=== PATIENT | female | born 1975 | race Caucasian/White ===

== ENCOUNTER 2025-05-03 16:55 | Inpatient (IN) | payer SELFPAY ==
[2025-05-03 17:01] VITALS: BP 107/77; PULSE 102; RESP 18; TEMP 36.7; O2SAT 97; BMI 35.1
--- OUTSIDE RECORDS SUMMARY | 2025-05-03 17:01 | XMS_ITS | Encounter Summary ---
Author Organization [facility] Address [address] [place] [address] Care Team Providers Care Carbon Accountant Name Role Phone Anne Escobar MD Unavailable [phone] Magdaleno Blackwell MD Primary Care Provider [phone] Reason for Visit * Reason Onset Date Comments Botox Injection 04/04/2025 Encounter Details Date Type Department Care Team ([facility] Contact Info) Description 04/04/2025 Telephone Neurology [place] [address] [phone] [place] [address] [place] [phone] Botox Injection Social History Tobacco Use Types Packs/Day Years Used Date Smoking Tobacco: Every Day Cigarettes 1.5 32 Smokeless Tobacco: Never Comments:started at age 14, trying to quit down to 2 packs a week Alcohol Use Standard Drinks/Week Comments Not Currently 0 (1 standard drink = 0.6 oz pur e alcohol) PHQ-2 Answer Date Recorded PHQ-2 Score 0 08/26/2021 Comments No Sex and Gender Information Value Date Recorded Sex Assigned at Not on file Legal Sex Female 5:21 AM EST Gender Identity Not on file Sexual Orientation Not on file documented as of this encounter Miscellaneous Notes * Telephone Encounter - Tona Briseno - 04/06/2025 8:37 AM EDT Tried calling patient to offer 04/07 at 8:[address] Patton, her mobile voicemail is full and her home # does not have voicemail set up yet * Telephone Encounter - Jhonathan Patton MD - 04/05/2025 5:22 PM EDT Please offer 08:45 on 04/07. Thanks * Telephone Encounter - Yamini Hayes - 04/05/2025 11:17 AM EDT Patient called to check if Dr. Patton responded about getting her in for Botox before 04/12 Please advise, thank you * Telephone Encounter - Gilma Randolph - 04/04/2025 10:55 AM EDT Her Botox is here if we have room next week * Telephone Encounter - Tona Briseno - 04/04/2025 10:48 AM EDT Henrietta was calling to schedule botox. She is asking that it be done on or before the 11 of April because she is going out of town, and she said that Dr. Patton knows that and told her that she couldprobably get in before the 11 of April. documented in this encounter Plan of Treatment Upcoming Encounters Date Type Department Care Team (Late st Contact Info) Description 07/04/2025 2:45 PM EDT Procedure visit Neurology [place] [address] [phone] Jhonathan Patton MD [address] [phone] documented as of this encounter Visit Diagnoses Not on filedocumented in this encounter Care Teams Carbon Accountant Relationship Specialty Start Date End Date Anne Escobar MD [address] [place] [phone] PCP - OBGYN Obstetrics and Gynecology 07/02/21 Magdaleno Blackwell MD [address] [place] [phone] PCP - General Emergency Medicine 08/04/22 documented as of this encounter
--- OUTSIDE RECORDS SUMMARY | 2025-05-03 17:01 | XMS_ITS | Encounter Summary ---
Author Organization [facility] Address [address] [place] [address] Care Team Providers Care Reel Stripper Name Role Phone Anne Escobar MD Unavailable [phone] Magdaleno Blackwell MD Primary Care Provider [phone] Encounter Details Date Type Department Care Team (Late Contact Info) Description 05/05/2023 Documentation Only [facility] Neurology [facility] [address] [place] [phone] DoctorDiana MD Social History Tobacco Use Types Packs/Day Years [...] on file documented as of this encounter Plan of Treatment Upcoming Encounters Date Type Department Care Team (Late Contact Info) Description 07/04/2025 2:45 PM EDT Procedure visit Neurology [place] [address] [phone] Jhonathan Patton MD 2655 [facility] [address] [place] [address] documented as of this encounter Visit Diagnoses Not on filedocumented in this encounter Additional Health Concerns Infection Onset Date Last Indicated Resolved Time Influenza 11/07/2024 11/07/2024 03/10/2025 8:55 AM EDT documented as of this encounter Care Teams Reel Stripper Relationship Specialty Start Date End Date Anne Escobar MD [address] [place] [phone] PCP - OBGYN Obstetrics and Gynecology 07/02/21 Magdaleno Blackwell MD [address] [place] [phone] PCP - General Emergency Medicine 08/04/22 documented as of this encounter
--- OUTSIDE RECORDS SUMMARY | 2025-05-03 17:01 | XMS_ITS | Encounter Summary ---
Author Organization [facility] Address [address] [place] [address] Care Team Providers Care Manager Of Financial Reporting Name Role Phone Anne Escobar MD Unavailable [phone] Magdaleno Blackwell MD Primary Care Provider [phone] Reason for Visit * Reason Onset Date Comments Appointment 03/27/2025 Encounter Details Date Type Department Care Team ([facility] Contact Info) Description 03/27/2025 Telephone Neurology [place] [address] [place] [phone] [place] [address] [place] [phone] Appointment Social History Tobacco Use Types Packs/Day Years [...] * Telephone Encounter - Tona Briseno - 03/27/2025 9:37 AM EDT Henrietta called to schedule appointment with Dr. Chappell, she is scheduled for IVIG on the and , and needs appointment at 4. She said that Dr. Chappell will want to see her after the IVIG. Pleaseadvise when to schedule documented in this encounter Plan of Treatment Upcoming Encounters Date Type Department Care Team (Late st Contact Info) Description 07/04/2025 2:45 PM EDT Procedure visit Neurology [place] 2[address] [facility] [address] [place] [address] Jhonathan Patton MD 2655 [facility] [address] [place] [phone] documented as of this encounter Visit Diagnoses Not on filedocumented in this encounter Care Teams Manager Of Financial Reporting Relationship Specialty Start Date End Date Anne Escobar MD [address] [place] [phone] PCP - OBGYN Obstetrics and Gynecology 07/02/21 Magdaleno Blackwell MD [address] [place] [phone] PCP - General Emergency Medicine 08/04/22 documented as of this encounter
--- OUTSIDE RECORDS SUMMARY | 2025-05-03 17:01 | XMS_ITS | Encounter Summary ---
Author Organization [facility] Address [address] [place] [address] Care Team Providers Care Billboard Mechanic Name Role Phone Magdaleno Blackwell MD Primary Care Provider [phone] Encounter Details Date Type Department [facility] Description 08/23/2019 Ophth Exam [facility] [address] [facility], Floor [address] [place] [address] Joselito Mcginnis MD [address] [place] [address] [address] [place] [address] Social History Tobacco Use Types Packs/Day Years Used Date Smoking Tobacco: Every Day Cigarettes 1 26 Smokeless Tobacco: Never Alcohol Use Standard Drinks/Week Comments Yes 0 (1 standard drink = 0.6 oz pur e alcohol) 4 drinks /week Comments No Sex and Gender Information Value Date Recorded Sex Assigned at Female 03/07/2020 4:17 AM EDT Legal Sex Female 8:48 PM EST Gender Identity Not on file Sexual Orientation Not on file documented as of this encounter Functional Status * Is the person deaf or does he/she have serious difficulty hearing? Answer Date of Assessment Author No 08/19/2019 10:00 PM EDT Sharmaine Mehta RN * Is this person blind or does he/she have serious difficulty seeing even when wearing glasses? Answer Date of Assessment Author No 08/19/2019 10:00 PM Sharmaine Ledbetter RN * Does this person have serious difficulty walking or climbing stairs? Answer Date of Assessment Author No 08/19/2019 10:00 PM Sharmaine Ledbetter RN * Does this person have difficulty dressing or bathing? Answer Date of Assessment Author No 08/19/2019 10:00 PM EDT Sharmaine Mehta RN * Difficulty doing errands due to a physicial, mental or emotional condition Answer Date of Assessment Author No 08/19/2019 10:00 PM EDT Sharmaine Mehta RN documented as of this encounter Mental Status * Difficulty remembering or making decisions due to a physicial, mental or emotional condition Answer Entry Date Author No 08/19/2019 10:00 PM EDT Sharmaine Mehta RN documented in this encounter Plan of Treatment Not on file documented as of this encounter Visit Diagnoses Not on filedocumented in this encounter Additional Health Concerns Infection Onset Date Last Indicated Resolved Time R/O COVID-19 04/13/2020 04/13/2020 04/14/2020 2:24 PM EDT R/O Influenza 11/24/2023 11/24/2023 11/24/2023 9:3 6 PM EST documented as of this encounter Care Teams Billboard Mechanic Relationship Specialty Start Date End Date Magdaleno Blackwell MD [address] [place] [address] PCP - General Emergency Medicine 12/13/24 documented as of this encounter
--- OUTSIDE RECORDS SUMMARY | 2025-05-03 17:01 | XMS_ITS ---
Author Organization [facility] Address [address] [place] [phone] Phone [phone] Care Team Providers Care Classified Ad Clerk Name Role Phone Rita Saldivar LEONA Care Team Information Rece iver [phone] Dee Fuller MD Care Team Information Re ceiver [phone] Magdaleno Blackwell M.D. Care Team Information Cause Analyst [phone] Problems Active Problems Provider Date Tenderness of left lower quadrant of abdomen Madhuri Escobar M.D. Onset: 02/08/2021 Backache Thania Escobar M.D. Onset: Microscopic hematuria Thania Escobar M.D. Onse t: 02/08/2021 Kidney stone Thania Escobar M.D. Onset: Cigarette smoker MARIANA James Onset: 0 06/27/2022 Long-term current use of opi ate analgesic drug MARIANA James Onset: 06/27/2022 Cocaine user MARIANA James Onset: Gastroesophageal reflux disease MARIANA Dominguez Onset: 06/27/2022 Nodule of lung MARIANA James Onset: Essential hypertension MARIANA James On set: 06/27/2022 History of Graves' disease Maria Antonia James Onset: 06/27/2022 Anxiety MARIANA James Onset: Depressive disorder MARIANA James Onset : 06/27/2022 Cyst of kidney MARIANA James Onset: Allergies and adverse reactions Active Allergies Criticality Reaction Severity Comments Date Bactrim Unable to assess criticality 02/08/2021 Shellfish-Derived Products Unable to assess criticality 02/08/2021 Medications Active Medications SIG Qnty Indications Order ing Provider Date Oxybutynin Kztgnwue2rf Tablets 1 tab by mouth 3 times per day as needed for urinary pain 12tabs Thania Escobar M.D. 09/02/2021 [id number] Tablets 1 by mouth twice a day for 3 days 6tabs Thania Escobar M.D. 09/02/2021 Flomax0.4mg Capsules 1 by mouth nightly for 7 days 7caps Thania Escobar M.D. 09/02/2021 Oxybutynin Oupzmytm4mb Tablets take 1 tablet three times a day as needed for urinary pain/stent pain/bladder spasms 9tabs Thania Escobar M.D. 03/27/2021 Phenazopyridine [id number] Tablets take 1 tablet three times daily as needed for urinary pain/discomfort 15tabs Thania Escobar M.D. 03/27/2021 Losartan Potassium Unknown 0 Levothyroxine Sodium Unknown Mestinon Unknown Adderall Unknown Oxycodone HCL Unknown Vitamin B-12 Unknown /0 000 Vitamin D Unknown Ativan Unknown Referrals Description No Information Available Plan of Treatment No Information Available Assessments Date Code Description Provider 03/31/2025 N23 Unspecified renal colic Kenji Escobar M.D. 03/31/2025 N20.0 Calculus of kidney Thania Escobar M.D. Encounters Description No Information Available Social History Description No Information Available Functional Status Description No Information Available Mental Status Description No Information Available
--- OUTSIDE RECORDS SUMMARY | 2025-05-03 17:01 | XMS_ITS | Encounter Summary ---
Author Organization [facility] Address [address] [place] [address] Care Team Providers Care Buildings And Grounds Coordinator Name Role Phone Anne Escobar MD Unavailable [phone] Magdaleno Blackwell MD Primary Care Provider [phone] Encounter Details Date Type Department Care Team (Late Contact Info) Description 11/18/2024 Orders Only [facility] 2[address] [facility] [address] [place] [address] Romy Umaña RN Social History Tobacco Use Types Packs/Day Years Used Date Smoking Tobacco: Former Cigarettes 1.5 32 Smokeless Tobacco: Never Comments:started [...] 07/04/2025 2:45 PM EDT Procedure visit Neurology [place] 2655 [facility] [address] [place] [address] Jhonathan Patton MD 2655 [facility] [address] [place] [address] documented as of this encounter Visit Diagnoses Not on filedocumented in this encounter Additional Health Concerns Infection Onset Date Last Indicated Resolved Time Influenza 11/07/2024 11/07/2024 03/10/2025 8:55 AM EDT documented as of this encounter Care Teams Buildings And Grounds Coordinator Relationship Specialty Start Date End Date Anne Escobar MD [address] [place] [phone] PCP - OBGYN Obstetrics and Gynecology 07/02/21 Magdaleno Blackwell MD [address] [place] [phone] PCP - General Emergency Medicine 08/04/22 documented as of this encounter
--- OUTSIDE RECORDS SUMMARY | 2025-05-03 17:01 | XMS_ITS | Clinical Summary ---
Author Organization [facility] Address [address] [place] [address] Care Team Providers Care Nick Setter Name Role Phone Magdaleno Blackwell MD Primary Care Provider [phone] Source Comments If you require more information, please call our [facility] Department at [phone]. [facility] Allergies Active Allergy Reactions Criticality Noted Date Comments Adhesive Tape Hives 11/24/2023 Bactrim 10/16/2009 Diphenhydramine Other (See Comments) Low 11/24/2023 IV injection only-phlebitis Benzoin Rash Low 05/30/2021 Lisinopril Cough,Other (See Comments) Medium 09/18/2016 cough Morphine Rash,Nausea Only Low 05/22/2016 GI Shellfish-Derived Products Itching Low 08/18/2019 Medications CHANTIX STARTING MONTH BRADEN 0.5 MG X 11 & 1 MG X 42 tablet braden 08/25/20 19 Active acetaminophen (TYLENOL) 500 mg tablet Take 2 tablets (1,000 mg total) by mouth 3 times daily as needed for Pain 90 tablet 03/06/20 20 Active albuterol HFA (PROVENTIL, VENTOLIN, PROAIR HFA) 108 (90 Base) MCG/ACT inhaler Inhale 1-2 puffs into the lungs every 6 hours as needed for Wheezing. Shake well before each use. Active amphetamine-dext roamphetamine (ADDERALL) 30 MG tablet Take 1 tablet (30 mg total) by mouth every morning Max daily dose: 30 mg 30 tablet 03/15/20 20 Active LORazepam (ATIVAN) 1 MG tablet Take 1 tablet (1 mg total) by mouth nightly Max daily dose: 1 mg 30 tablet 03/15/20 20 Active Non-System MedicationIndica tions:Myasthenia gravis Ok to give IVIG one week early due to patient surgery 1 each 07/29/20 22 Active venlafaxine (EFFEXOR-XR) 75 mg 24 hr capsule Take 1 capsule (75 mg total) by mouth daily. 12/18/19 23 Active levothyroxine (SYNTHROID, LEVOTHROID) 50 mcg tablet Take 1 tablet (50 mcg total) by mouth daily. Active Non-System MedicationIndica tions:MG (myasthenia gravis) Ok to use mediport for IVIG infusion. 1 each 07/24/20 23 Active ibuprofen (ADVIL,MOTRIN) 600 mg tablet Take 1 tablet (600 mg total) by mouth 3 times daily. 08/20/20 23 Active pyridostigmine (MESTINON) 180 MG CR tablet TAKE 1 TABLET(180 MG) BY MOUTH DAILY 30 tablet 5 12/25/19 24 Active EPINEPHrine (EPIPEN) 0.3 mg/0.3 mL auto-injectorInd ications:Anaphyl axis for Life-Threatening Hypersensitivity Reaction. Inject 0.3mg(0.3ml) intramuscularly into the anterolateral aspect of the thigh, through clothing if necessary as needed for anaphylaxis. 1 each 5 08/16/20 24 Active pregabalin (LYRICA) 75 mg capsule Take 1 capsule (75 mg total) by mouth 3 times daily. 11/03/19 25 Active home ambulatory and bath aidsIndications: Spinal stenosis of lumbar region without neurogenic claudication listed below: 12/12/19 25 Active home ambulatory and bath aidsIndications: Spinal stenosis of lumbar region without neurogenic claudication listed below: 12/12/19 25 Active apixaban (ELIQUIS) 5 mg tablet Take 1 tablet (5 mg total) by mouth every 12 hours. 60 tablet 5 12:01 PM EST 12/13/19 25 Active naloxone (NARCAN) 4 mg/0.1 mL nasal spray Instill 1 spray in 1 nostril once for opioid reversal. Repeat in alternating nostrils with new package every 2-3 minutes until response 2 each 5 12:01 PM EST 12/13/19 25 Active methylPREDNISolo ne (MEDROL BRADEN) 4 MG tablet pack follow package directions 21 tablet 12/23/19 25 Active diphenhydrAMINE Take 1 tablet by mouth as needed (sleep). Active cyclobenzaprine (FLEXERIL) 5 mg tablet Take 1 tablet (5 mg total) by mouth nightly as needed for Muscle spasms. 28 tablet 1 01/17/20 25 Active oxyCODONE (ROXICODONE) 5 mg immediate release tabletIndication s:Acute Pain for Acute Pain. Take 1 tab po every 8 h as needed for pain; continue to wean down 21 tablet 01/25/20 25 Active semaglutide 0.25 mg or 0.5 mg dose (OZEMPIC, 0.25 OR 0.5 MG/DOSE,) pen Inject 0.5 mg into the skin once a week. Active baclofen 10 mg tablet TAKE 1 TABLET BY MOUTH TWICE DAILY NEEDED FOR BACK OR SPASMS Active cephalexin (KEFTAB) 500 MG tablet Take by mouth. 09/02/20 21 Active losartan 50 mg tablet Take 1 tablet (50 mg total) by mouth daily. Active metroNIDAZOLE (METROGEL-VAGINA L) 0.75 % vaginal gel INSERT 1 APPLICATORFUL VAGINALLY AT BEDTIME FOR 5 DAYS Active naproxen (NAPROSYN) 500 mg tablet Take 1 tablet (500 mg total) by mouth 2 times daily as needed. Active BOTOX 100 units SOLR SMARTSI Unit(s) IM Every 3 Months Active oxybutynin 5 mg tablet TAKE 1 TABLET BY MOUTH THREE TIMES DAILY NEEDED FOR URINARY PAIN 03/27/20 21 Active phenazopyridine 100 MG tablet TAKE 1 TABLET BY MOUTH THREE TIMES DAILY NEEDED FOR URINARY PAIN/DISCOMFORT 03/27/20 21 Active tamsulosin (FLOMAX) 0.4 mg capsule TAKE 1 CAPSULE BY MOUTH EVERY NIGHT FOR 7 DAYS 09/02/20 21 Active traMADol (ULTRAM) 50 mg tablet Active Active Problems Problem Noted Date Diagnosed Date Lumbar stenosis with [place] due to L2-L3 disc hernation 12/06/2024 Overview (12/07/2024): Images from the original note were not included. MRI lumbar spine 12/07/2024 Spinal stenosis of lumbar re gion with neurogenic claudication 11/07/2024 Visual disturbance 10/31/2024 Overview (10/31/2024): Visual disturbance described as positive visual phenomenon in left eye but persisting with eye closure lasting 3+ hours. Visual phenomenon has a migrainous quality with hexagonal pattern and rainbow colors but duration exceeds migraine duration. There is no homonymous hemianopia on formal visual field testing to suggest a structural etiology. Assessment & Plan (10/31/2024 8:23 PM EST): Visual disturbance described as positive visual phenomenon in left eye but persisting with eye closure lasting 3+ hours. Visual phenomenon has a migrainous quality with hexagonal pattern and rainbow colors but duration exceeds migraine duration. There is no homonymous hemianopia on formal visual field testing to suggest a structural etiology. Renal cyst 01/21/2023 Intramural leiomyoma of uterus 08/04/2022 Dysmenorrhea 08/04/2022 Cigarette smoker 06/27/2022 Hypertropia of right eye 06/09/2022 Overview (01/27/2025): 2. 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 She is s/p left inferior rectus muscle recession 8 mm on 08/28/22 with significant improvement. There is interval worsening of her residual right hypertropia on exam today. If remains stable on follow-up, will offer additional strabismus surgery. There is no evidence of compressive optic neuropathy based on her pupillary exam, color vision and visual acuity. Assessment & Plan (01/27/2025 6:15 PM EDT): 2. 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 She is s/p left inferior rectus muscle recession 8 mm on 08/28/22 with significant improvement. There is interval worsening of her residual right hypertropia on exam today. If remains stable on follow-up, will offer additional strabismus surgery. There is no evidence of compressive optic neuropathy based on her pupillary exam, color vision and visual acuity. Assessment & Plan (10/31/2024 8:27 PM EST): 3. 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 She is s/p left inferior rectus muscle recession 8 mm on 08/28/22 with significant improvement. If her residual right hypertropia worsens will offer additional strabismus surgery. There is no evidence of compressive optic neuropathy. Assessment & Plan (07/20/2024 7:33 PM EDT): 2. 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 She is s/p left inferior rectus muscle recession 8 mm on 08/28/22 with significant improvement. There is 1 mm increased left exophthalmos. There is no evidence of compressive optic neuropathy. Plan follow- up in Neuro-ophthalmology clinic in 6 months. Assessment & Plan (01/28/2024 5:59 AM EDT): 2. 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 She is s/p left inferior rectus muscle recession 8 mm on 08/28/22 with significant improvement. There has been interval improvement since last visit. Observe for now. Patient reports her diplopia is markedly improved since surgery. Her bilateral exophthalmos is stable. There is no evidence of compressive optic neuropathy. Plan follow-up in Neuro-ophthalmology clinic in 6 months. Assessment & Plan (06/09/2022 11:21 PM EDT): 2. 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 Recommend left inferior rectus muscle recession. The risks and benefits of strabismus surgery were discussed with patient and informed consent was obtained. Plan follow-up in Neuro-ophthalmology clinic 1 week post-operatively. Seronegative, nonthymomatous generalized Myasthe graciela gravis 11/19/2021 Intervertebral disc disorder with radiculopathy of lumbosacral region 07/04/2021 Long-term current use of opiate analgesic 2020 Dizzy spells 12/16/2020 Cervical dystonia 11/02/2020 Mild dilation of ascending aorta 10/30/2020 Generalized pruritus 10/03/2020 Recurrent falls 09/10/2020 Refractive error 05/29/2020 Overview (03/05/2022): 2. Refractive error. Patient was unable to tolerate line bifocals. She was given an updated MRx for progressive add lenses at last visit. She reports she cannot read with the glasses (add was made as +1.25 instead of +1.75 as prescribed)- will mail copy to patient so that she can request remake of her glasses. Assessment & Plan (03/05/2022 9:57 PM EDT): 2. Refractive error. Patient was unable to tolerate line bifocals. She was given an updated MRx for progressive add lenses at last visit. She reports she cannot read with the glasses (add was made as +1.25 instead of +1.75 as prescribed)- will mail copy to patient so that she can request remake of her glasses. Assessment & Plan (01/13/2022 8:11 PM EDT): 2. Refractive error. Patient was unable to tolerate line bifocals. She was given an updated MRx for progressive add lenses. She was also advised she could try a clip on add for reading. Assessment & Plan (05/14/2021 9:06 PM EDT): 2. Refractive error. Patient given a copy of her prior MRx for progressive add lenses as her new glasses are single vision lenses. Assessment & Plan (05/29/2020 11:27 AM EDT): 2. Refractive error. MRx updated for progressive add lenses as per patient request. 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 Patient reported symptoms of generalization. 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 There was interval improvement of her ptosis after starting IVIG on 02/04/22. She is s/p left inferior rectus recession 8 mm on 08/28/22 with initial desired ocular alignment in primary gaze. 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 She developed mild recurrent right hypertropia in primary gaze with interval worsening on exam today. She also has a new exotropia in primary gaze suggestive of myasthenia gravis. She is currently treated with IVIG Q 3 weeks. Plan follow-up in Neuro-ophthalmology in 3 months for re-assessment. Patient would like to have additional strabismus surgery if her ocular misalignment remains stable despite IVIG therapy. Assessment & Plan (01/27/2025 6:14 PM EDT): 1. 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 Patient reported symptoms of generalization. 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 There was interval improvement of her ptosis after starting IVIG on 02/04/22. She is s/p left inferior rectus recession 8 mm on 08/28/22 with initial desired ocular alignment in primary gaze. 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 She developed mild recurrent right hypertropia in primary gaze with interval worsening on exam today. She also has a new exotropia in primary gaze suggestive of myasthenia gravis. She is currently treated with IVIG Q 3 weeks. Plan follow-up in Neuro-ophthalmology in 3 months for re-assessment. Patient would like to have additional strabismus surgery if her ocular misalignment remains stable despite IVIG therapy. Assessment & Plan (10/31/2024 8:25 PM EST): 2. 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 Patient reported symptoms of generalization. 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 There was interval improvement of her ptosis after starting IVIG on 02/04/22. She is s/p left inferior rectus recession 8 mm on 08/28/22 with desired ocular alignment in primary gaze. 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 She developed mild recurrent right hypertropia in primary gaze but this is too small for additional strabismus surgery currently. Exam stable today. She deferred trial of Fresnel prism 3 PD BU OS (non-dominant eye) due to cost. Plan follow-up in Neuro-ophthalmology as scheduled in January. Assessment & Plan (07/20/2024 7:29 PM EDT): 1. 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 Patient reported symptoms of generalization. 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 There was interval improvement of her ptosis after starting IVIG on 02/04/22. She is s/p left inferior rectus recession 8 mm on 08/28/22 with desired ocular alignment in primary gaze. 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 She developed mild recurrent right hypertropia in primary gaze but this is too small for additional strabismus surgery. Exam stable today. She elected to trial Fresnel prism 3 PD BU OS (non-dominant eye) to determine if she would like prism ground into her glasses. She has no ocular misalignment on down gaze or left gaze, so ground in prism would induce diplopia in these directions. She will be updating her glasses soon with Optometry. Plan follow-up in Neuro-ophthalmology in 6 months. Assessment & Plan (01/28/2024 5:56 AM EDT): 1. 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 Patient reports symptoms of generalization. 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 There was interval improvement of her ptosis since starting IVIG on 02/04/22. She is also taking Mestinon as needed. There has been significant variability of her ocular misalignment across exams although her left hypotropia persisted. She is s/p left inferior rectus recession 8 mm on 08/28/22 with desired ocular alignment in primary gaze. 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 She has a mild recurrent right hypertropia in primary gaze but this is too small for additional strabismus surgery. Her ocular misalignment in right gaze is improving. Plan follow-up in Neuro-ophthalmology in 6 months. If any progression, could consider additional strabismus surgery. Patient would also like to have a referral to Oculoplastics for ptosis repair. Assessment & Plan (07/18/2023 10:28 AM EDT): 1. 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 Patient reports symptoms of generalization. She has had variable ocular misalignment across exams. 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 There was marked interval improvement of her ptosis since starting IVIG on 02/04/22. She is also taking Mestinon. There has been significant variability of her ocular misalignment across exams although her left hypotropia persisted. She is now s/p left inferior rectus recession 8 mm on 08/28/22 with desired ocular alignment in primary gaze. 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 She has a mild recurrent right hypertropia in primary gaze but this is too small for additional strabismus surgery. Plan follow-up in Neuro-ophthalmology in 6 months. If any progression, could consider additional strabismus surgery. Patient would also like to have a referral to Oculoplastics at that time if her ptosis remains stable. She is not using additional Mestinon 60 mg tablets (only 180 mg ER Mestinon Qam) most days due to side effects. Assessment & Plan (09/24/2022 1:50 PM EST): 1. 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 Patient reports symptoms of generalization. She has had variable ocular misalignment across exams. 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 There was marked interval improvement of her ptosis since starting IVIG on 02/04/22. She is also taking Mestinon. There has been significant variability of her ocular misalignment across exams although her left hypotropia persisted. 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 She is now s/p left inferior rectus recession 8 mm on 08/28/22 with desired ocular alignment in primary gaze. Plan follow-up in Neuro-ophthalmology in February 2023 (6 months post-operatively). Assessment & Plan (09/03/2022 1:49 PM EST): 1. 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 Patient reports symptoms of generalization. She has had variable ocular misalignment across exams. 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 There was marked interval improvement of her ptosis since starting IVIG on 02/04/22. She is also taking Mestinon. There has been significant variability of her ocular misalignment across exams although her left hypotropia persisted. 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 She is now s/p left inferior rectus recession 8 mm on 08/28/22. There is mild left lower lid edema and left lower lid retraction which is likely causing the perception of increased exophthalmos. By [place], her exophthalmos has not increased. Recommend continue Maxitrol ointment 1/4 OS QID for 1 more week. Plan follow-up in Neuro-ophthalmology clinic in 3 weeks as patient leaves for [place] 09/27/22 for over 1 month. Assessment & Plan (06/09/2022 11:19 PM EDT): 1. 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 Patient reports symptoms of generalization. She has had variable ocular misalignment across exams. 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 There is significant variability of her ocular misalignment across exams although her left hypotropia persists. There has been marked interval improvement of her ptosis since starting IVIG on 02/04/22. She is also taking Mestinon. Assessment & Plan (03/05/2022 9:56 PM EDT): 1. 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 Patient reports symptoms of generalization including dysphagia, dyspnea and fatigue. She has had variable ocular misalignment across exams. 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 There is significant variability of her ocular misalignment across exams although her left hypotropia persists. There has been marked interval improvement of her ptosis since starting IVIG on 02/04/22. She reports her diplopia nearly resolved after IVIG but has recently worsened. I discussed she may ultimately need strabismus surgery for her left hypotropia but will plan to re-evaluation first 1 week after IVIG. Patient will call once she knows infusion schedule in April. Assessment & Plan (01/13/2022 8:15 PM EDT): 1. 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 Patient reports symptoms of generalization including dysphagia, dyspnea and fatigue. She has had variable ocular misalignment across exams. 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 There is significant variability of her ocular misalignment today (worsening left hypotropia on down gaze versus up gaze). She will be starting IVIG in January. Would defer consideration of left inferior rectus muscle recession at this time pending response to IVIG. Plan follow-up in Neuro-ophthalmology clinic in 2 months. Assessment & Plan (09/16/2021 9:54 PM EST): 1. 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 There was no evidence of generalization on Neuromuscular clinic exam but patient reports dysphagia in the evening in addition to dyspnea with exertion. Re-evaluation by Neuromuscular clinic is pending on 09/25/21. Patient has had variable ocular misalignment across exams. She is only able to tolerate Mestinon 60 mg daily and defers consideration of low dose prednisone as she previously had adverse side effects on low dose prednisone. Hopefully steroid sparing immunosuppression can be considered at her upcoming Neuromuscular clinic appointment. 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 Will await results of Neuromuscular clinic evaluation/ therapeutic options. If no improvement, plan orbital imaging with consideration of left inferior rectus muscle recession. Plan follow-up in Neuro-ophthalmology clinic in 3 months. Assessment & Plan (05/14/2021 9:05 PM EDT): 1. 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 There was no evidence of generalization on Neuromuscular clinic exam. Patient has variable ocular misalignment when last seen in 2019 and right-sided myogenic ptosis. Exam today shows an incomitant right hypertropia. She defers consideration of low dose prednisone as she previously had adverse side effects on low dose prednisone. She is unable to tolerate Mestinon. Will refer to neuromuscular specialist for consideration of steroid- sparing immunosuppression. Plan follow-up in Neuro-ophthalmology clinic in 4 months. Assessment & Plan (05/29/2020 11:26 AM EDT): 1. 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 There was no evidence of generalization on Neuromuscular clinic exam. Patient has variable ocular misalignment on exam today and right-sided myogenic ptosis. She defers consideration of low dose prednisone as she previously had adverse side effects on low dose prednisone. Plan increase Mestinon to 60 mg Q4 hours PRN with glycopyrrolate 0.5 mg TID AC PRN for gastrointestinal side effects. Plan follow-up in Neuro-ophthalmology clinic in 3 months. 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 Headache 08/16/2019 Hypothyroidism 03/09/2019 Vitamin D deficiency 03/09/2019 Overweight 03/09/2019 Lumbago-sciatica due to disp lacement of lumbar intervertebral disc 03/09/2019 Hypertriglyceridemia 03/09/2019 Eczema 03/09/2019 Other spondylosis, lumbar region 10/26/2018 Pyelonephritis 05/29/2018 Polysubstance abuse 05/22/2016 Overview (09/02/2019): Overview: MJ, cocaine Lung nodule 05/22/2016 Overview (09/02/2019): Overview: CT chest 05/22/16 - 2 cm lingular nodule Left renal stone 05/08/2013 Backache 05/08/2013 History of nephrolithiasis 05/08/2013 B12 deficiency 05/08/2013 H/O Graves' disease 05/08/2013 Narcolepsy 05/08/2013 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 10/23/2010 Overview (01/19/2012): Created by Conversion Essential hypertension 12/19/2009 Overview (09/02/2019): Created by Conversion Anterior Wall Chest Pain With Respiration 2009 Overview (01/19/2012): Created by Conversion Insomnia 12/19/2009 Overview (01/19/2012): Created by Conversion Alopecia 09/04/2009 Overview (01/19/2012): Created by Conversion Rosacea 09/04/2009 Overview (01/19/2012): Created by Conversion Depressive disorder 03/08/2009 Overview (02/22/2016): Needs PHQ at next visit PHQ9 02/21/2016 PHQ-9 Total Score 17 Tobacco abuse 03/08/2009 Overview (09/02/2019): Created by Conversion Anxiety 03/08/2009 Overview (01/19/2012): Created by Conversion Prediabetes Dyslipidemia Resolved Problems Problem Noted Date Diagnosed Date Resolved Date Menorrhagia with regular cycle 08/04/2022 07/15/2023 Hematuria, unspecified type 03/06/2020 07/15/2023 Lung nodules 09/03/2019 07/15/2023 Bilateral back pain 09/02/2019 07/15/20 Chronic leg pain 09/02/2019 07/15/2023 Chest pain 05/22/2016 07/15/2023 Patellofemoral Syndrome 02/06/201006/20 Overview (01/19/2012): Created by Conversion Vitamin B12 Deficiency 03/08/200912/06 Overview (01/19/2012): Created by Conversion Encounters Date Type Department Care Team Description 04/05/2025 11:21 AM EDT - 04/05/2025 11:39 AM EDT Surgery [facility] Procedure [address] [place] [address] Ty Hogan MD LEFT L3 SNRB - BLOCK, SPINAL NERVE ROOT, LUMBOSACRAL 04/05/2025 11:11 AM EDT - 04/05/2025 11:59 PM EDT Hospital Encounter [facility] [address] [place] [address] Ty Hogan MD Low back pain Discharge Disposition: Home or Self Care 04/05/2025 11:10 AM EDT Hospital Encounter [facility] Procedure [address] [place] [address] Ty Hogan MD Discharge Disposition: Home or Self Care 03/24/2025 11:37 AM EDT - 03/24/2025 11:52 AM EDT Surgery [facility] Procedure [address] [place] [address] Ty Hogan MD LEFT L3 TFESI-INJECTION, SPINE, LUMBOSACRAL, TRANSFORAMINAL APPROACH -REQUESTING AFTER 10 AM 03/24/2025 11:17 AM EDT - 03/24/2025 11:59 PM EDT Hospital Encounter [facility] [address] [place] [place] [address] Ty Hogan MD Low back pain Discharge Disposition: Home or Self Care 03/24/2025 11:16 AM EDT Hospital Encounter [facility] Procedure [address] [place] [address] Ty Hogan MD Lumbar stenosis with neurogenic claudication (Primary Dx); Spondylolisthesis of lumbar region Discharge Disposition: Home or Self Care 03/16/2025 11:45 AM EDT Office Visit [facility] at [address] [phone] Rolf Orantes MD Chronic bilateral low back pain, unspecified whether sciatica present (Primary Dx) 02/14/2025 9:27 AM EDT - 02/14/2025 11:59 PM EDT [facility] [address] [place] [phone] Kevin Dunn DO Russo, Karinsa, RN MaishaDavDonaldo Myasthenia gravis without exacerbation Discharge Disposition: Home or Self Care 02/13/2025 9:30 AM EDT PA Office Visit [facility] [address], [address] [place] [address] Donna Carrillo PA UTI (urinary tract infection) (Primary Dx) Discharge Disposition: Home or Self Care 02/02/2025 2:08 PM EDT - 02/02/2025 11:59 PM EDT [facility] [address] [place] [address] Myasthenia gravis without exacerbation Discharge Disposition: Home or Self Care 02/02/2025 12:11 PM EDT - 02/02/2025 2:07 PM EDT [facility] [address] [place] [phone] Chronic bilateral low back pain, unspecified whether sciatica present Discharge Disposition: Home or Self Care 02/02/2025 11:45 AM EDT Office Visit [facility] [address] [phone] Rolf Orantes MD Chronic bilateral low back pain, unspecified whether sciatica present (Primary Dx) from Last 3 Months Immunizations Immunization Administration Dates Next Due Influenza Whole 08/09/2011 PPD Test 08/14/2009 Tdap 07/02/2014,03/08/2009 Family History Medical History Relation Comments Other Father unknown Cancer Maternal Grandmother unknown Dementia Maternal Grandmother Other Mother murdered when pt was child Cancer Other 1 cousins - breast CA Urolithiasis Other 2 Relation Status Comments Father Maternal Grandmother Mother Other 1 Other 2 Social History Tobacco Use Types Packs/Day Years Used Date Smoking Tobacco: Every Day Cigarettes 0.3 31 Smokeless Tobacco: Never Tobacco Cessation:Ready to Q uit: Not Asked; Counseling Given: Not Answered Alcohol Use Standard Drinks/Week Comments Yes 1 (1 standard drink = 0.6 oz pur e alcohol) 1 beer every few weeks [facility] Utilities Answer Date Recorded In the past 12 months has th e electric, gas, oil, or water company threatened to shut off services in your home? Patient declined 12/07/2024 Hunger Vital Sign Answer Date Recorded Within the past 12 months, y ou worried that your food would run out before you got the money to buy more. Patient declined Within the past 12 months, t he food you bought just didn't last and you didn't have money to get more. Patient declined PRAPARE - Transportation Answer Date Re corded In the past 12 months, has l ack of transportation kept you from medical appointments or from getting medications? Patient declined 12/07/2024 In the past 12 months, has l ack of transportation kept you from meetings, work, or from getting things needed for daily living? Patient declined 12/07/2024 Housing Stability Vital Sign Answer Justin e Recorded In the last 12 months, was t here a time when you were not able to pay the mortgage or rent on time? Patient declined 12/07/19 25 In the past 12 months, how m any times have you moved where you were living? 0 12/07/2024 At any time in the past 12 m [facility], were you homeless or living in a assisted (including now)? Patient declined 12/07/2024 Intimate Partner Violence Answer Date R ecorded Is anyone physically, emotionally, or financiall y hurting you? No 04/05/2025 Comments No Sex and Gender Information Value Date Recorded Sex Assigned at Female 03/07/2020 4:17 AM EDT Legal Sex Female 8:48 PM EST Gender Identity Not on file Sexual Orientation Not on file Last Filed Vital Signs Vital Sign Reading Time Taken Comments Blood Pressure 160/107 04/05/2025 11:36 AM EDT Pulse 92 04/05/2025 11:36 AM EDT Temperature 36.7 C (98.1 F) 04/05/2025 11:14 AM EDT Respiratory Rate 16 04/05/2025 11:36 AM EDT Oxygen Saturation 99% 04/05/2025 11:36 AM EDT Inhaled Oxygen Concentration - - Weight 102.5 kg (226 lb) 04/05/2025 11:14 AM EDT Height 175.3 cm (5' 9 ) 04/05/2025 11:14 AM EDT Body Mass Index 33.37 04/05/2025 11:14 AM EDT Plan of Treatment Health Maintenance Due Date Last Done Comments Adult Annual Wellness (HESPO/YakovStars) 1996 Breast Cancer Screening USPSTF 2015 Depression Screen Monthly 03/23/2016 02/21/2016 IMM Pneumo: Peds (0-5yrs) or At-Risk Patients (6-49yrs) (2 of 2 - PCV) 05/05/2018 05/05/2017 Cologuard (FIT DNA) Colon Cancer Screening 2020 Colon Cancer Screening USPSTF 2020 Colonography Colon Cancer Screening 2020 Colonoscopy Colon Cancer Screening 2020 Occult Blood (FOBT) Colon Cancer Screening 2020 Sigmoidoscopy Colon Cancer Screening 2020 COVID-19 Vaccine (2 - Hector risk series) 04/24/2021 03/27/2021 HPV >= 25 10/08/2021 10/08/2016 Cervical Cancer Screening (USPSTF/ACOG) 03/29/2023 Pap Smear >=21 03/29/2023 03/29/2020, 05/2018, 10/08/2016 IMM-Influenza (#1) 2025 08/09/2011 IMM DTaP/Tdap/Td (4 - Td or Tdap) 09/30/2026 09/30/2016, 07/02/2014, 03/08/2009, Additional history exists HIV Screening USPSTF/[place] Completed 10/03/2020 Hepatitis C Screening USPSTF/[place] Completed 05/30/2021, 10/05/2020 IMM-HIB 0-5 Yrs or At-Risk Patients Aged Out No longer eligible based on patient's age to complete this topic IMM-HPV 9-26 Yrs or Shared Decision (27-45 Yrs) Aged Out No longer eligible based on patient's age to complete this topic IMM-MCV4 0-18 Yrs or At-Risk Patients Aged Out No longer eligible based on patient's age to complete this topic IMM-MenB (2 Plans: Shared decision & Increased Risk Plans) Aged Out No longer eligible based on patient's age to complete this topic IMM-Rotavirus 0-8 Months Aged Out No longer eligible based on patient's age to complete this topic Goals Goal Patient Goal Type Associated Problems Recent Progress Patient-Stated? Author Autogenerat ed Goal Care Plan Autogenerated Problem No Jessica Johnson Autogenerat ed Goal Care Plan Autogenerated Problem No Jenifer Negrete [employer] Implanted Type Area Continuing Education Specialist Device Identifier Shelf Expiration Date Model / Serial / Lot Port Power Clearvue Stealth - [id number] Implanted:Qty: 1 on 07/21/2023 at [facility] Implant BARD PERIPHERAL VASCULAR [id number] 01/16/2025 [id number] / / [id number] Port Infus 8fr Plas Attch Chronoflex Cath Freya Fill Sut H Intmed Kt Airguard Vlv Intro - [id number] Implanted:Qty: 1 on 02/14/2025 by Jacoby Harris MD at [facility] Implant BARD PERIPHERAL VASCULAR 09/17/2026 [id number] / / [id number] Procedures Procedure Name Priority Date/Time Associated Diagnosis Comments SPINE LUMBAR 2 OR 3 VIEWS LIMITED Routine 04/05/2025 11:30 AM EDT Low back pain OH NJX AA&/STRD TFRML EPI LUMBAR/SACRAL 1 LEVEL 04/05/2025 11:22 AM EDT Lumbar stenosis with neurogenic claudication SPINE LUMBAR 2 OR 3 VIEWS LIMITED Routine 03/24/2025 11:34 AM EDT Low back pain OH NJX AA&/STRD TFRML EPI LUMBAR/SACRAL 1 LEVEL 03/24/2025 11:27 AM EDT Chronic bilateral low back pain, unspecified whether sciatica present MRI/MRA 03/07/2025 12:00 AM EDT PROCEDURE NOTE Routine 02/14/2025 1:40 PM EDT IR PORT-A-CATH(MEDIPORT) PLACEMENT Routine 02/14/2025 1:31 PM EDT Myasthenia gravis without exacerbation AEROBIC CULTURE Routine 02/13/2025 10:22 AM EDT UTI (urinary tract infection) POCT URINE Routine 02/13/2025 10:18 AM EDT UTI (urinary tract infection) POCT URINALYSIS DIPSTICK Routine 02/13/2025 10:17 AM EDT UTI (urinary tract infection) PROCEDURE NOTE Routine 02/02/2025 3:02 PM EDT IR TUNNELED CENTRAL LINE/PORTACATH/MEDIPO RT CHECK Routine 02/02/2025 2:58 PM EDT Myasthenia gravis without exacerbation SPINE LUMBAR MIN 4 VIEWS COMPLETE Routine 02/02/2025 12:20 PM EDT Chronic bilateral low back pain, unspecified whether sciatica present HEPATITIS C VIRUS ANTIBODY WITH REFLEX TO HEPATITIS C QUANTITATIVE Routine 05/30/2021 3:55 PM EDT HIV-1/2 ANTIGEN/ANTIBODY SCREEN WITH CONFIRMATION Routine 10/03/2020 5:20 PM EST CLINIC CHARGE NURSE CYTOLOGY Routine 03/29/2020 3:30 PM EDT HPV DNA PROBE WITH CYTOLOGY Routine 10/08/2016 4:45 PM EST from Last 3 Months or Most Recently Relevant to Health Maintenance Results * Spine lumbar 2 or 3 views Limited (04/05/2025 11:30 AM EDT) Only the most recent of2 resultswithin the time period is included. Narrative [facility] - 04/05/2025 11:30 AM EDT Procedure performed by orthopedics. Please refer to procedure note. us Ty [facility] ORDERABLE S Final Result [facility] * MRI/MRA (03/07/2025 12:00 AM EDT) Anatomical Region Laterality Modality Other us Provider Unknown MD IMG EXTERNAL IMAGES Final Re sult * Procedure note (02/14/2025 1:40 PM EDT) Narrative Procedure Note Jacoby Harris MD - 02/14/2025 1:40 PM EDT Images from the original note were not included. Procedure Report Time out documentation completed prior to procedure: Yes Indications/Pre-Procedure diagnosis: Port-A-Cath not flushing or pullingback Procedure performed: IR port-a-cath (mediport) placement Guide Wire(s) removed and inspected for integrity:Yes Findings/Procedure Summary (detailed report located in the Image tab): Prior port-a-cath removed. Guide wire used to place new port-a-cath at22cm charles with visualization of the tip in the RA. Soft tissue appearedhealthy with no evidence of malperfusion or infection and closed inlayers. Complications: None Condition: good EBL: <5mls Specimens: no Operators: Dr. Kevin Dunn and Dr. Jacoby Harris Disposition: Outpatient Post-Procedure Diagnosis: Same Jacoby Harris MD 02/14/2025 1:40 PM Jacoby Harris MD NURSING INFORMATIONAL/COMMUNICA TION ORDERABLES Final Result * IR port-a-cath (mediport) placement (02/14/2025 1:31 PM EDT) Anatomical Region Laterality Modality N/A X-Ray Angiograph y 02/14/2025 1:31 PM EDT Impressions 02/17/2025 8:53 AM EDT Removal of a dysfunctional Mediport with exchange for a new single lumen Mediport. END OF IMPRESSION Narrative 02/17/2025 8:53 AM EDT PROCEDURE: Venous port removal, venous port placement Procedural Personnel Attending physician(s): Kevin Dunn DO Ordering information: Ir port placement less than 5 years., G70.00-Myasthenia gravis without (acute) exacerbation. Pre-procedure diagnosis: Need for ocean transportation intermediary venous access Complications: No immediate complications. PROCEDURE SUMMARY: - Mediport removal - Tunneled port insertion under fluoroscopic guidance Pre-procedure Consent: Informed consent for the procedure including risks, benefits and alternatives was obtained and time-out was performed prior to the procedure. Preparation (MIPS): The site was prepared and draped using all elements of maximal sterile barrier technique including sterile gloves, sterile gown, cap, mask, large sterile sheet, sterile ultrasound probe cover, hand hygiene and cutaneous antisepsis. Anesthesia/sedation Sedation: 3 mg Versed, 150 mcg Fentanyl. Sedation Justification: Pain and anxiety Sedation duration start: 12:51 PM Sedation duration stop: 13:38 PM I provided moderate sedation. During this time, I was [id number] with the patient and supervising the RN; who monitored the patient's level of consciousness and physiological status. Procedure An incision was made at the upper chest and the old single lumen Mediport was dissected free and then removed in its entirety. A wire was placed through the existing tubing and then using the wire access we placed fresh tubing which was extended by about 3 cm relative to the prior port. The position was near the cavoatrial junction. We then connected the tubing to a single lumen port which was seated into the old port pocket. We then tested the port and there was good flow. The pocket was closed in layers. The procedure was well tolerated. Closure The access site and incision were closed and sterile dressing(s) were applied. Access site closure technique: Absorbable suture Procedure Note Kevin Dunn DO - 02/17/2025 PROCEDURE: Venous port removal, venous port placement Procedural Personnel Attending physician(s): Kevin Dunn DO Ordering information: Ir port placement less than 5 years.,G70.00-Myasthenia gravis without (acute) exacerbation. Pre-procedure diagnosis: Need for skilled nursing venous access Complications: No immediate complications. PROCEDURE SUMMARY: - Mediport removal - Tunneled port insertion under fluoroscopic guidance Pre-procedure Consent: Informed consent for the procedure including risks, benefits andalternatives was obtained and time-out was performed prior to theprocedure. Preparation (MIPS): The site was prepared and draped using all elements ofmaximal sterile barrier technique including sterile gloves, sterile gown,cap, mask, large sterile sheet, sterile ultrasound probe cover, handhygiene and cutaneous antisepsis. Anesthesia/sedation Sedation: 3 mg Versed, 150 mcg Fentanyl. Sedation Justification: Pain and anxiety Sedation duration start: 12:51 PM Sedation duration stop: 13:38 PM I provided moderate sedation. During this time, I was [id number] withthe patient and supervising the RN; who monitored the patient's level ofconsciousness and physiological status. Procedure An incision was made at the upper chest and the old single lumen Mediportwas dissected free and then removed in its entirety. A wire was placedthrough the existing tubing and then using the wire access we placed freshtubing which was extended by about 3 cm relative to the prior port. The position was near the cavoatrialjunction. We then connected the tubing to a single lumen port which wasseated into the old port pocket. We then tested the port and there wasgood flow. The pocket was closed in layers. The procedure was well tolerated. Closure The access site and incision were closed and sterile dressing(s) wereapplied. Access site closure technique: Absorbable suture IMPRESSION: Removal of a dysfunctional Mediport with exchange for a new single lumenMediport. END OF IMPRESSION Haydee Chappell MD IMG IR ORDERABLES Final Resu lt * Aerobic culture-Urine (02/13/2025 10:22 AM EDT) Aerobic Culture . [facility] URINE / Unknown 02/13/2025 1 0:22 AM EDT 02/13/2025 10:04 PM EDT Narrative [facility] - 02/14/2025 5:53 PM EDT Mixed desi with no predominant uropathogen. Suggestive of contamination. Total colony count of <10,000/ml. Donna PEÑA MICROBIOLOGY - GENERAL OR DERABLES Final Result [facility] [address] [place] [address], * POCT urine (02/13/2025 10:18 AM EDT) Preg Test,UR POC Negative Negative-Dil tazlina urine specimens may cause false negative urine results... INTERNAL CONTROL POCT URINE *Yes-internal procedural control(s) acceptable Exp date 05/02/26 Lot # [id number] 02/13/2025 10:1 8 AM EDT Donna PEÑA POINT OF CARE TEST ORDERA BLES Final Result * (ABNORMAL) POCT urinalysis dipstick (02/13/2025 10:17 AM EDT) Specific gravity,UA POCT 1.015 1.002 - 1.030 PH,UA POCT 5.0 5 - 8 Leuk Esterase,UA POCT Trace(A) Negative, Test Not Performed Nitrite,UA POCT Negative Negative, Test Not Performed Protein,UA POCT Trace(A) Negative, Test Not Performed mg/dL Glucose,UA POCT Normal Normal mg/dL Ketones,UA POCT Negative Negative mg/dL Urobilinogen, UA Normal Less than 1 mg/dL Bilirubin,Ur Negative Negative, Test Not Performed Blood,UA POCT About 50(A) Negative, Test Not Performed Exp date 11/13 Lot # [id number] 02/13/2025 10:1 7 AM EDT Donna PEÑA POINT OF CARE TEST ORDERA BLES Final Result * Procedure note (02/02/2025 3:02 PM EDT) Narrative Procedure Note Aleida Cuenca MD - 02/02/2025 3:02 PM EDT Procedure Report Port flow study showing fibrin sheath. Aleida Cuenca MD NURSING INFORMATIONAL/COMMUNICAT ION ORDERABLES Final Result * IR tunneled central line/portacath/mediport check (02/02/2025 2:58 PM EDT) Anatomical Region Laterality Modality N/A X-Ray Angiograph y 02/02/2025 2:58 PM EDT Impressions 02/03/2025 2:40 PM EDT PROCEDURE SUMMARY: - Fluoroscopic evaluation of indwelling central venous access device - Contrast injection of device: Port - Additional procedure(s): None PROCEDURE DETAILS: Pre-procedure Consent: Informed consent for the procedure including risks, benefits and alternatives was obtained and time-out was performed prior to the procedure. Preparation: Following cutaneous antisepsis, sterile technique was used to access the subcutaneous port. Anesthesia/sedation Sedation: No Fluoroscopic evaluation Fluoroscopic evaluation of the indwelling central venous access device was performed. Findings: Normal course of the catheter without evidence of kink or defect Contrast injection The indwelling central venous access device was injected with contrast under fluoroscopy and a permanent image was stored. Findings: Patent catheter without evidence of leakage. Fibrin sheath was seen. Catheter flush: Normal saline Closure The catheter was de-accessed. A sterile dressing was applied. Contrast Contrast agent: Omnipaque 240 Contrast volume (mL): 10 Radiation Dose Fluoroscopy time ( ): Reference air kerma ( ): Kerma area product ( ): Additional Details Additional description of procedure: None Equipment details: None Specimens removed: None Estimated blood loss (mL): Less than 10 Standardized report: [id number] Catheter check of right-sided Mediport demonstrates fibrin sheath at the tip of the catheter. The tip is in the expected location of the cavoatrial junction. Plan: Stripping procedure or revision of the port is recommended if the port still needed. END OF IMPRESSION [facility] submits this DICOM format image data and final report to the [facility], an independent secure electronic health information exchange, on a reciprocally searchable basis (with patient authorization) for a minimum of 12 months after exam date. Narrative 02/03/2025 2:40 PM EDT 02/02/2025 2:58 PM PROCEDURE: Central venous access catheter check Procedural Personnel Attending physician(s): Aleida Cuenca M.D. Fellow physician(s): None Resident physician(s): None Advanced practice provider(s): None Pre-procedure diagnosis: Myasthenia gravis Post-procedure diagnosis: Same Indication: Inability to aspirate from device. Additional clinical history: None Complications: No immediate complications. Procedure Note Aleida Cuenca MD - 02/03/2025 02/02/2025 2:58 PM PROCEDURE: Central venous access catheter check Procedural Personnel Attending physician(s): Aleida Cuenca M.D. Fellow physician(s): None Resident physician(s): None Advanced practice provider(s): None Pre-procedure diagnosis: Myasthenia gravis Post-procedure diagnosis: Same Indication: Inability to aspirate from device. Additional clinical history: None Complications: No immediate complications. IMPRESSION: PROCEDURE SUMMARY: - Fluoroscopic evaluation of indwelling central venous access device - Contrast injection of device: Port - Additional procedure(s): None PROCEDURE DETAILS: Pre-procedure Consent: Informed consent for the procedure including risks, benefits andalternatives was obtained and time-out was performed prior to theprocedure. Preparation: Following cutaneous antisepsis, sterile technique was used toaccess the subcutaneous port. Anesthesia/sedation Sedation: No Fluoroscopic evaluation Fluoroscopic evaluation of the indwelling central venous access device wasperformed. Findings: Normal course of the catheter without evidence of kink ordefect Contrast injection The indwelling central venous access device was injected with contrastunder fluoroscopy and a permanent image was stored. Findings: Patent catheter without evidence of leakage. Fibrin sheath wasseen. Catheter flush: Normal saline Closure The catheter was de-accessed. A sterile dressing was applied. Contrast Contrast agent: Omnipaque 240 Contrast volume (mL): 10 Radiation Dose Fluoroscopy time ( ): Reference air kerma ( ): Kerma area product ( ): Additional Details Additional description of procedure: None Equipment details: None Specimens removed: None Estimated blood loss (mL): Less than 10 Standardized report: [id number] Catheter check of right-sided Mediport demonstrates fibrin sheath at thetip of the catheter. The tip is in the expected location of the cavoatrialjunction. Plan: Stripping procedure or revision of the port is recommended if the portstill needed. END OF IMPRESSION [facility] submits this DICOM format image data and final report to [employer], an independent secure electronic health informationexchange, on a reciprocally searchable basis (with patient authorization)for a minimum of 12 months after exam date. Haydee Chappell MD IMG IR ORDERABLES Final Resu lt * Spine lumbar AP, Lateral, Oblique views (02/02/2025 12:20 PM EDT) Anatomical Region Laterality Modality L-spine N/A Computed Radiogr aphy 02/02/2025 12:2 0 PM EDT Impressions 02/02/2025 12:23 PM EDT No acute findings. Mild retrolisthesis L2 over L3 with moderate endplate degenerative change at this level. Mild facet arthropathy throughout. Alignment grossly stable in flexion and extension. END OF IMPRESSION [facility] submits this DICOM format image data and final report to the [employer], an independent secure electronic health information exchange, on a reciprocally searchable basis (with patient authorization) for a minimum of 12 months after exam date. Narrative 02/02/2025 12:23 PM EDT 02/02/2025 12:20 PM LUMBAR SPINE X-RAYS CLINICAL INFORMATION: back and/or leg pain, M54.50-Low back pain, [id number]-Other chronic pain. COMPARISON: None. PROCEDURE: Four projections of the lumbar spine were obtained. FINDINGS/ Procedure Note Larry Dorado DO - 02/02/2025 02/02/2025 12:20 PM LUMBAR SPINE X-RAYS CLINICAL INFORMATION: back and/or leg pain, M54.50-Low back pain,koiwgllwaffZ52.29-Other chronic pain. COMPARISON: None. PROCEDURE: Four projections of the lumbar spine were obtained. FINDINGS/ IMPRESSION: No acute findings. Mild retrolisthesis L2 over L3 with moderate endplatedegenerative change at this level. Mild facet arthropathy throughout.Alignment grossly stable in flexion and extension. END OF IMPRESSION [facility] submits this DICOM format image data and final report to [employer], an independent secure electronic health informationexchange, on a reciprocally searchable basis (with patient authorization)for a minimum of 12 months after exam date. Rolf Orantes MD IMG DIAGNOSTIC IMAGING OR DERABLES Final Result * Hepatitis C antibody (05/30/2021 3:55 PM EDT) Hep C Ab NEG 05/31/2021 9:52 AM EDT [facility] Comment: No evidence of past infection with Hepatitis C. However, this result does not exclude very recent infection. Test Method: CMIA 05/30/2021 3:55 PM EDT 05/31/2021 3:37 AM EDT Rita Saldivar LEAD JANITOR LAB BLOOD ORDERABLES Teresa l Result Performing Organization Address City/[facility]/ZIP Co de Phone Number [facility] [address] [place] [address], * HIV 1&2 antigen/antibody (10/03/2020 5:20 PM EST) Pathologist [facility] HIV 1&2 ANTIGEN/ANTIB DYLON Nonreactive 10/05/2020 11:32 AM EST [facility] Comment:Test Method: CMIA 10/03/2020 5:20 PM EST 10/03/2020 11:06 PM EST Sheree Rodriguez LEAD JANITOR LAB BLOOD ORDERABLES Final Re sult Performing Organization Address City/[facility]/ZIP Co de Phone Number [facility] [address] [place] [address], * CLINIC CHARGE NURSE Cytology (03/29/2020 3:30 PM EDT) CLINIC CHARGE NURSE Cytology [id number] Clinical Data Source Name: CERVICAL PAP SMEAR, LIQUID BASED SCRN # of Monolayers: 1 # of Slides: 1 LMP: 03/24/2020 SPECIMEN ADEQUACY: Satisfactory for Evaluation GENERAL CATEGORIZATION: Epithelial Cell Abnormality. INTERPRETATION/RESU LTS: Atypical squamous cells of undetermined significance. By physician request this case has been sent for Human Papilloma Virus testing. See published guidelines for management and follow-up recommendations. Journal of Lower Genital Tract Disease (Jan;17 (5):S1-27) or http://www.asccp.or g/asccp-guidelines Comment: This specimen has been analyzed with the aid of the ThinPrep Imaging System. Every slide is reviewed by a fiscal accountant and any detected potential cellular abnormality is interpreted by a pathologist. RELATED LABORATORY RESULTS Test Name Collected D/T Result HPV TYPE 16 03/29/2020 15:30 NEG HPV TYPE 18 03/29/2020 15:30 NEG HPV OTHER HR 03/29/2020 15:30 NEG Test Description: The sensitivity and specificity of this PCR assay for HPV16, HPV18 and 12 OTHER HIGH RISK HPV types (31, 33, 35, 39, 45, 51, 52, 56, 58, 59, 66, and 68) are undefined for non-cervical specimens. HPV testing was performed by [place] [id number]. Note: Pap tests are processed, reviewed and reported at [facility], [address] [place] [address], [place] [address] Tube Backer: Electronic Signature: RAVI BRUNO M.S., CT (ASCP) HEMANT MALAVE M.D. Reported Date: 04/06/2020 [facility] CERVICAL SMEAR SPECIMEN / Unknown 03/29/2020 3:30 PM EDT 03/30/2020 2:07 PM EDT Comment:CERVICAL PAP SMEAR, LIQUID BASED SCRN Narrative [facility] - 04/06/2020 12:47 PM EDT Unless indicated otherwise in Component Results, testing was performed at: [place] [address] us Rita Saldivar NP PATHOLOGY/CYTOLOGY ORDERA BLES Final Result [facility] Refer to result narrative US * HPV DNA probe with cytology (10/08/2016 4:45 PM EST) HPV Type 16 NEG [facility] HPV Type 18 NEG [facility] HPV Other High Risk NEG [facility] Comment: TEST INFORMATION: Human Papillomavirus (HPV) High Risk- other. A positive high-risk other HPV test result indicates that the patient may be infected with one or more of the following HPV genotypes: 31, 33, 35, 39, 45, 51, 52, 56, 58, 59, 66 and 68, which are associated with cervical cancer and its precursor lesions. Results should be correlated with cytologic/histologic findings. 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 Health Care Directives 08/22/2019 2:02 PM * Full Code (Latest Code Status on File) Date Activated Date Inactivated Comments 12/06/2024 9:26 PM * Full Code Date Activated Date Inactivated Comments 03/07/2020 1:11 AM 03/15/2020 8:10 PM * Full Code Date Activated Date Inactivated Comments 08/18/2019 1:08 AM 08/25/2019 1:58 AM * Full Code Date Activated Date Inactivated Comments 06/29/2019 3:02 PM 06/30/2019 6:24 PM * Full Code Date Activated Date Inactivated Comments 05/29/2018 3:38 PM 05/30/2018 10:04 PM Care Teams Nick Setter Relationship Specialty Start Date End Date Magdaleno Blackwell MD [address] [place] [address] PCP - General Emergency Medicine 12/13/24
--- OUTSIDE RECORDS SUMMARY | 2025-05-03 17:01 | XMS_ITS | Clinical Summary ---
Author Organization [facility] Address [address] [place] [address] Care Team Providers Care Hearing Aid Dispenser Name Role Phone Anne Escobar MD Unavailable [phone] Magdaleno Blackwell MD Primary Care Provider [phone] Allergies Active Allergy Reactions Criticality Noted Date Comments Benzoin Rash Low 05/30/2021 Lisinopril Other (See Comments) Medium 09/18/2016 cough Morphine Nausea Only,Rash Low 05/22/2016 GI upset Seafood Anaphylaxis,Shortne ss Of Breath/Wheezing,Itc jonah,Swelling High 05/22/2016 Shellfish Sulfamethoxazole-Trim ethoprim Unknown High 10/16/2009 Unsure - but was hospitalized after Medications cyanocobalamin, VITAMIN B12, (VITAMIN B-12) 1,000 mcg/mL Inj injection Inject into the muscle every 30 (thirty) days. Due 03/19/21 Active albuterol 90 mcg/actuation Inhl inhaler Inhale 2 puffs into the lungs every 6 (six) hours as needed for Wheezing. Uses couple times weekly Active dextroamphetami ne-amphetamine (ADDERALL XR) 20 MG 24 hr capsule Take 1 capsule by mouth 2 (two) times daily. Active onabotulinumtox sherman (BOTOX) 100 unit Inj SolR injectionIndica tions:Cervical dystonia Inject 200 Units into the muscle every 3 (three) months. 2 each 3 5 03/06/20 26 Active oxyCODONE (ROXICODONE) 10 mg immediate release tablet Take 1 tablet by mouth every 8 (eight) hours as needed for Pain. Active gabapentin 300 MG Oral capsule Take 2 capsules by mouth at bedtime. Active naloxone 4 mg/actuation Nasl spray 1 spray by Intranasal route as needed (opioid reversal). Instill 1 spray in 1 nostril once for opioid reversal. Repeat in alternating nostrils with new package every 2-3 minutes until response Active Active Problems Problem Noted Date Diagnosed Date Dyslipidemia 04/27/2025 Prediabetes 04/27/2025 UTI (urinary tract infection) 03/09/2025 RLS (restless legs syndrome) 03/09/2025 Nicotine dependence 03/09/2025 Spinal stenosis of lumbar re gion with neurogenic claudication 11/07/2024 Intramural leiomyoma of uterus 08/04/2022 Dysmenorrhea 08/04/2022 Menorrhagia with regular cycle 08/04/2022 Hypertropia of right eye 06/09/2022 Overview (04/27/2025): 2. Left hypotropia (right hypertropia) with limited [...] pupillary exam, color vision and visual acuity. Intervertebral disc disorder with radiculopathy of lumbosacral region 07/04/2021 Long-term current use of opiate analgesic 2020 Nephrolithiasis 03/21/2021 Dizzy spells 12/16/2020 Cocaine use 11/26/2020 Cervical dystonia 11/02/2020 Mild dilation of ascending aorta ([facility] HCC Code) 10/30/2020 Recurrent falls 09/10/2020 Refractive error 05/29/2020 Overview (05/30/2021): 2. Refractive error. Patient given a copy of her prior MRx for progressive add lenses as her new glasses are single vision lenses. Last Assessment & Plan: 2. Refractive error. Patient given a copy of her prior MRx for progressive add lenses as her new glasses are single vision lenses. 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 Seronegative ocular myasthenia gravis presenting with [...] follow-up in Neuro-ophthalmology clinic in 4 months. Last Assessment & Plan: 1. Seronegative ocular myasthenia gravis presenting with [...] follow-up in Neuro-ophthalmology clinic in 4 months. 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 Microscopic hematuria 06/15/2019 Cobalamin deficiency 03/09/2019 Arthritis 03/09/2019 Hypothyroidism 03/09/2019 Hypertriglyceridemia 03/09/2019 Eczema 03/09/2019 Lumbago-sciatica due to disp lacement of lumbar intervertebral disc 03/09/2019 Vitamin D deficiency 03/09/2019 Other spondylosis, lumbar region 10/26/2018 Pyelonephritis 05/29/2018 Polysubstance abuse ([facility] HCC Code) 05/22/2016 Overview (05/22/2016): MJ, cocaine Acute flank pain 05/08/2013 Backache 05/08/2013 Insomnia 12/19/2009 Overview (05/30/2021): Created by Conversion Alopecia 09/04/2009 Overview (05/30/2021): Created by Conversion Rosacea 09/04/2009 Overview (05/30/2021): Created by Conversion Anxiety state, unspecified 03/08/2009 Overview (05/30/2021): Created by Conversion Depression 03/08/2009 Overview (05/30/2021): Needs PHQ at next visit PHQ9 02/21/2016 PHQ-9 Total Score 17 HTN (hypertension) H/O Graves' disease Acute on chronic low back pain Narcolepsy Tobacco abuse Resolved Problems Problem Noted Date Diagnosed Date Resolved Date Weakness 03/09/2025 03/12/2025 Myasthenia exacerbation ([facility] HCC Code) 11/07/2024 03/12/2025 Generalized pruritus 10/03/2020 021 Gross hematuria 03/24/2020 05/30/2021 Increased urinary frequency 03/24/2020 05/30/2021 Hematuria, unspecified type 03/06/2020 05/30/2021 Lung nodules 09/03/2019 05/30/2021 Chronic leg pain 09/02/2019 05/30/2021 Headache 08/16/2019 05/30/2021 Overweight 03/09/2019 05/30/2021 Chest pain 05/22/2016 05/30/2021 Pulmonary nodule 05/22/2016 08/04/2022 Overview (05/22/2016): CT chest 05/22/16 - 2 cm lingular nodule Pneumonia 05/22/2016 05/30/2021 Overview (05/22/2016): Lingular nodule on CT - consider infiltrate Pulmonary nodule 05/22/2016 05/30/2021 Overview (05/30/2021): Overview: CT chest 05/22/16 - 2 cm lingular nodule Polysubstance abuse ([facility] HCC Code) 05/22/2016 05/30/2021 Overview (05/30/2021): Overview: MJ, cocaine History of nephrolithiasis 05/08/2013 0 05/30/2021 H/O Graves' disease 05/08/2013 05/30/20 Left renal stone 05/08/2013 05/30/2021 Narcolepsy 05/08/2013 05/30/2021 Idiopathic hypersomnia with long sleep time 10/23/2010 05/30/2021 Overview (05/30/2021): Created by Conversion Sprain and strain of other s pecified sites of knee and leg 02/06/2010 05/30/2021 Overview (05/30/2021): Created by Conversion Painful respiration 12/19/2009 05/30/20 Overview (05/30/2021): Created by Conversion HTN (hypertension) 12/19/2009 Overview (05/30/2021): Created by Conversion Deficiency of other specifie d B group vitamins 03/08/2009 05/30/2021 Overview (05/30/2021): Created by Conversion Tobacco abuse 03/08/2009 05/30/2021 Overview (05/30/2021): Created by Conversion Encounters Date Type Department Care Team Description 04/11/2025 [place] [address] Rose Martines RN Other (IVIG) 04/05/2025 Orders Only [facility] Thania Escobar MD 04/05/2025 Orders Only [facility] Thania Escobar MD 04/04/2025 [place] [address] Jhonathan Patton MD Botox Injection 03/27/2025 Telephone [facility] [address] [place] [phone] Natali Adames RN Post Discharge Follow Up Call 03/27/[address] [phone] Haydee Chappell MD Appointment 03/21/[address] [phone] Haydee Chappell MD Infusion (Patient in hospital and asking for call back ) 03/20/2025 1:58 PM EDT - 03/24/2025 10:28 AM EDT Hospital Encounter [address] [place] [address] Abhi Encinas MD Keenan, Christopher, DO Saber, Suzan, MD Vitkus, MD Janna Cruz, Vane Rodriges DO Weakness (Primary Dx); Nephrolithiasis [N20.0]; Acute flank pain [R10.9]; Myasthenia gravis ([facility] HCC Code) [G70.00]; Constipation, unspecified constipation type; Other migraine without status migrainosus, intractable Discharge Disposition: Home or Self Care 03/20/2025 Travel 03/15/2025 Telephone [facility] [address] [place] [address] Annalisa Mitchell LPN Post Discharge Follow Up Call 03/13/2025 Orders Only [facility] [address] [place] [phone] Dara Grider MD Acute UTI 03/11/2025 Travel 03/10/2025 Travel 03/09/2025 12:07 PM EDT - 03/12/2025 6:14 PM EDT Hospital Encounter [address] [place] [phone] Phong Martin MD Keenan, Christopher, DO Vitkus, Alisa Anne, MD McPherson, Ashley, MD Acute UTI (Primary Dx); Generalized weakness; History of myasthenia gravis; Urinary tract infection without hematuria, site unspecified; Cigarette nicotine dependence with nicotine-induced disorder; RLS (restless legs syndrome); Seronegative myasthenia gravis ([facility] HCC Code); Weakness Discharge Disposition: Home with Home Health 03/09/2025 Telephone [address] [phone] Haydee Chappell MD Medication Problem (Med switch ) 03/07/2025 Telephone Neurology [address] [phone] Haydee Chappell MD Other (Infusion change) 03/06/2025 4:00 PM EDT Video Visit Neurology [address] [phone] Haydee Chappell MD Seronegative myasthenia gravis ([facility] HCC Code) (Primary Dx) 03/06/2025 Telephone Neurology [address] [phone] Jhonathan Patton MD Other (Order Botox) 02/24/2025 1:30 PM EDT Office Visit Neurology [address] [phone] Jhonathan Patton MD Cervical dystonia (Primary Dx); Dystonia 02/24/2025 Travel 02/23/2025 Telephone [address]rology [address] [phone] Haydee Chappell MD Infusion 02/22/2025 Telephone Neurology [address] [address] Haydee Chappell MD Infusion ([facility] Infusion at patient's house, wants to know if they can do infusion due to kidney infection ) 02/06/2025 4:30 PM EDT Video Visit Neurology [address] [phone] Haydee Chappell MD Seronegative myasthenia gravis ([facility] HCC Code) (Primary Dx) 02/03/2025 Orders Only Neurology [address] [address] Haydee Chappell MD Myasthenia gravis ([facility] HCC Code) (Primary Dx) from Last 3 Months Immunizations Immunization Administration Dates Next Due Influenza, Whole 08/09/2011 Hector Sars-CoV-2 Vaccination 03/27/2021 PPD Test 08/14/2009 Pneumococcal Polysaccharide (PPV23) 05/05/2017 TDAP 07/02/2014,03/08/2009 Family History Medical History Relation Comments Breast cancer Cousin Ovarian cancer Cousin Uterine cancer Cousin Breast cancer Maternal Aunt 1 Diabetes Maternal Aunt 1 Lung cancer Maternal Aunt 2 Colon cancer Maternal Grandfather Breast cancer Maternal Grandmother Diabetes Maternal Grandmother Hypertension Maternal Grandmother Anesthesia problems Neg Hx Malignant hyperthermia Neg Hx Pseudochol deficiency Neg Hx Relation Status Comments Brother of Pneumoni a Cousin Father Maternal Aunt 1 Maternal Aunt 2 Maternal Grandfather Maternal Grandmother Mother Social History Tobacco Use Types Packs/Day Years Used Date Smoking Tobacco: Every Day Cigarettes 1.5 32 Smokeless Tobacco: Never Tobacco Cessation:Ready to Q uit: Not Asked; Counseling Given: Not Answered Comments:started at age 14, trying to quit [...] Sign Reading Time Taken Comments Blood Pressure 121/75 03/24/2025 7:37 AM EDT Pulse 74 03/24/2025 7:37 AM EDT Temperature 36.7 C (98 F) 03/24/2025 7:37 AM EDT Respiratory Rate 18 03/24/2025 7:37 AM EDT Oxygen Saturation 100% 03/24/2025 7:37 AM EDT Inhaled Oxygen Concentration - - Weight 101.2 kg (223 lb) 03/20/2025 1:57 PM EDT Height 175.3 cm (5' 9 ) 03/20/2025 1:57 PM EDT Body Mass Index 32.93 03/20/2025 1:57 PM EDT Plan of Treatment Upcoming Encounters Date Type Department Care Team (Late st Contact Info) Description 07/04/2025 2:45 PM EDT Procedure visit Neurology [place] [address] [facility] [address] [place] [address] Jhonathan Patton MD [address] [facility] [address] [place] [phone] Health Maintenance Due Date Last Done Comments ANNUAL FIT TEST 1975 COLON CANCER SCREENING COLOGUARD 1975 COLON CANCER SCREENING FOBT 1975 COLON CANCER SIGMOIDOSCOPY Screening [address] COLONGRAPHY 1975 Colorectal Cancer Screening 1975 Dental Oral Exam 1975 Dental Prophylaxis 1975 Dental X-Ray: Bitewings 1975 Dental X-Ray: Full Mouth 1975 Hepatitis B Vaccines (1 of 3 - 19+ 3-dose series) 1994 HPV/Cotest 2005 Breast Cancer Screening 2015 Pneumococcal 0-49 (2 of 2 - PCV) 05/05/2018 05/05/2017 COVID-19 Vaccine (2 - season) 2024 03/27/2021 DTap / Tdap / Td Vaccines (3 - Td or Tdap) 07/02/2024 07/02/2014, 03/08/2009 Cervical Cancer Screening 08/26/2024 Pap Smear 08/26/2024 08/26/2021 Depression Screening (Once per Calendar Year) 2024 08/26/2021, 08/26/2021 [place] Opioid [place] Narcan 10/19/2024 Health Care Proxy Review 08/04/2121 08/04/2022 Zoster Vaccines (1 of 2) 2025 INFLUENZA VACCINE (#1) 2025 08/09/2011 TSH Level 03/20/2026 03/20/2025, 11/19, 11/07/2024, Additional history exists Diabetes Screening 03/24/2026 03/24/2025, 0 03/23/2025, 03/21/2025, Additional history exists Hypertension Annual Creatinine 03/24/2026 03/24/2025, 03/23/2025, 03/21/2025, Additional history exists Hypertension Annual Potassium 03/24/2026 03/24/2025, 03/23/2025, 03/21/2025, Additional history exists HIB Vaccines Aged Out No longer eligi ble based on patient's age to complete this topic HPV Vaccine Aged Out No longer eligi ble based on patient's age to complete this topic Hepatitis A Vaccine Aged Out No longe r eligible based on patient's age to complete this topic IPV Vaccines Aged Out No longer eligi ble based on patient's age to complete this topic Meningococcal ACWY Vaccines Aged Out No longer eligible based on patient's age to complete this topic Meningococcal B Vaccines Aged Out No longer eligible based on patient's age to complete this topic RRH RSV Vaccine Infants Aged Out No l onger eligible based on patient's age to complete this topic Rotavirus Vaccines Aged Out No longer eligible based on patient's age to complete this topic Medical Devices Implanted Type Area Port Cdl A Driver Device Identifier Shelf Expiration Date Model / Serial / Lot Stent Uret W/O Wire [id number] Implanted:Qty : 1 on 03/21/2021 by Thania Escobar MD at [facility] Implant Left: [employer] 05/01/2025 [id number] / / [id number] Procedures Procedure Name Priority Date/Time Associated Diagnosis Comments KERWIN VIDEO-ANESTHESIA (ADULT) Routine 04/05/2025 6:01 PM EDT KERWIN VIDEO-PATIENT SAFETY Routine 04/05/2025 6:01 PM EDT XR ABDOMEN KUB 1 VIEW Routine 03/24/2025 6:28 AM EDT EGFR CKD-EPI REFIT Routine 03/24/2025 2: 03 AM EDT DIFF MANUAL Routine 03/24/2025 2:03 AM EDT BASIC METABOLIC PANEL Routine 03/24/2025 2:03 AM EDT CBC AND DIFFERENTIAL Routine 03/24/2025 2:03 AM EDT EGFR CKD-EPI REFIT Routine 03/23/2025 6: 54 AM EDT DIFFERENTIAL Routine 03/23/2025 6:54 AM EDT BASIC METABOLIC PANEL Routine 03/23/2025 6:54 AM EDT CBC AND DIFFERENTIAL Routine 03/23/2025 6:54 AM EDT HOLD LAVENDER Routine 03/23/2025 6:42 AM EDT EGFR CKD-EPI REFIT Routine 03/21/2025 5: 38 AM EDT DIFF MANUAL Routine 03/21/2025 5:38 AM EDT BASIC METABOLIC PANEL Routine 03/21/2025 5:38 AM EDT CBC AND DIFFERENTIAL Routine 03/21/2025 5:38 AM EDT RAPID FLU/RSV BY PCR STAT 03/20/2025 6:48 PM EDT SARS-COV2 BY REAL TIME-PCR STAT 03/20/2025 6:48 PM EDT URINE MICROSCOPIC STAT 03/20/2025 3:1 0 PM EDT URINALYSIS W REFLEX TO MICRO AND CUL STAT 03/20/2025 3:10 PM EDT URINE CULTURE STAT 03/20/2025 3:10 PM EDT FREE THYROXINE STAT 03/20/2025 2:16 PM EDT TSH (THYROID STIMULATING HORMONE) STAT 03/20/2025 2:16 PM EDT EGFR CKD-EPI REFIT STAT 03/20/2025 2: 16 PM EDT DIFFERENTIAL STAT 03/20/2025 2:16 PM EDT HCG, QUANTITATIVE, , SERUM STAT 03/20/2025 2:16 PM EDT LIPASE STAT 03/20/2025 2:16 PM EDT COMPREHENSIVE METABOLIC PANEL STAT 03/20/2025 2:16 PM EDT CBC AND DIFFERENTIAL STAT 03/20/2025 2:[address] RENAL COLIC Routine 03/12/2025 3:30 PM EDT EGFR CKD-EPI REFIT Routine 03/10/2025 4: 10 AM EDT BASIC METABOLIC PANEL Routine 03/10/2025 4:10 AM EDT CBC Routine 03/10/2025 4:10 AM EDT KERWIN VIDEO-PATIENT SATISFACTION: HOSPITAL VISIT EXPECTATIONS Routine 03/09/2025 10:[address] RENAL COLIC STAT 03/09/2025 6:52 PM EDT URINE MICROSCOPIC STAT 03/09/2025 5:4 5 PM EDT URINALYSIS W REFLEX TO MICRO AND CUL STAT 03/09/2025 5:45 PM EDT URINE CULTURE STAT 03/09/2025 5:45 PM EDT EGFR CKD-EPI REFIT STAT 03/09/2025 5: 33 PM EDT DIFFERENTIAL STAT 03/09/2025 5:33 PM EDT HCG, QUANTITATIVE, , SERUM STAT 03/09/2025 5:33 PM EDT COMPREHENSIVE METABOLIC PANEL STAT 03/09/2025 5:33 PM EDT CBC AND DIFFERENTIAL STAT 03/09/2025 5:33 PM EDT SCAN/TX LAB PROCEDURE 03/09/2025 12:00 AM EDT GYNECOLOGIC SPECIMEN, SCREENING Routine 08/26/2021 12:00 AM EST Encounter for annual routine gynecological examination from Last 3 Months or Most Recently Relevant to Health Maintenance Results * Kerwin Video-Patient Safety (04/05/2025 6:01 PM EDT) VIDEO NAME PATIENT SAFETY INSTRUCTIONS FOR HEALTHCARE SETTINGS [employer] URL [email or web address] KERWIN [employer] ACCESS CODE [id number] [employer] ISSUE DATE Apr 05, 2025 [employer] START DATE [employer] COMPLETED DATE This program was not started and flagged as on: May 03, 2025 [employer] EXPIRATION DATE May 02, 2025 [employer] STATUS [employer] 04/05/2025 6:01 PM EDT us Thania Escobar MD KERWIN EDUCATION ORDERABLES Teresa l Result Performing Organization Address [facility] de Phone Number [employer] [address] [place] [address] * Kerwin Video-Anesthesia (Adult) (04/05/2025 6:01 PM EDT) VIDEO NAME ANESTHESIA (ADULT) [employer] URL [email or web address] [employer] ACCESS CODE [id number] [employer] ISSUE DATE Apr 05, 2025 [employer] START DATE [employer] COMPLETED DATE This program was not started and flagged as on: May 03, 2025 [employer] EXPIRATION DATE May 02, 2025 [employer] STATUS [employer] 04/05/2025 6:01 PM EDT us Thania LIPSCOMBI EDUCATION ORDERABLES Teresa l Result Performing Organization Address [facility] de Phone Number [employer] [address] [place] [address] * XR abdomen KUB 1 view (03/24/2025 6:28 AM EDT) Anatomical Region Laterality Modality Abdomen Digital Radiogra phy 03/24/2025 6:28 AM EDT Narrative 03/24/2025 8:09 AM EDT HISTORY: Other specified disorder kidney and ureter. TECHNIQUE: 1 view of the abdomen and pelvis. COMPARISON: CT 03/12/2025 FINDINGS: Nondistended stomach. No abnormally dilated small bowel loops are evident. Moderate stool throughout nondistended colon. The punctate renal calculi seen on prior CT are not evident by radiograph. Scattered pelvic phleboliths. Osseous structures appear unchanged. IMPRESSION: 1. The punctate renal calculi seen on prior CT are not evident by radiograph. 2. Moderate colonic stool burden. Signed by Attending: Rufino Short MD on 03/24/2025 8:09 AM Procedure Note Rufino Short MD - 03/24/2025 HISTORY: Other specified disorder kidney and ureter. TECHNIQUE: 1 view of the abdomen and pelvis. COMPARISON: CT 03/12/2025 FINDINGS: Nondistended stomach. No abnormally dilated small bowel loops areevident. Moderate stool throughout nondistended colon. The punctate renal calculi seen on prior CT are not evident by radiograph.Scattered pelvic phleboliths. Osseous structures appear unchanged. IMPRESSION: 1. The punctate renal calculi seen on prior CT are not evident byradiograph. 2. Moderate colonic stool burden. Signed by Attending: Rufino Short MD on 03/24/2025 8:09 AM Vane Saldivar DO IMG DIAGNOSTIC IMAGING ORDERABLES Final Result * eGFR CKD-EPI REFIT (03/24/2025 2:03 AM EDT) Only the most recent of6 resultswithin the time period is included. eGFR CKD-EPI REFIT >60 mL/min [facility] Comment: eGFR by creatinine was calculated using the 2020 CKD-EPI refit equation (1). An eGFR less than 60 mL/min/1.73 meters squared suggests kidney disease in those below the age of 65 years. People aged greater than or equal to 65 years may or may not have CKD with eGFR less than 60 mL/min/1.73 m2. A concurrent blood test for cystatin C and the use of an equation that combines both serum creatinine and cystatin C provides a more accurate GFR estimate than one using creatinine or cystatin C alone. (https://www.kidney.org/professionals/kdoqi/gfr_calculator). 1. Am J Kidney Dis. 2020 22: [id number] (89) 64328-3. 03/24/2025 2:03 AM EDT 03/24/2025 2:16 AM EDT [facility] - 03/24/2025 2:41 AM EDT Release to patient->[facility] LAB BLOOD ORDERABLES Final Resul t Performing Organization Address City/[facility]/ZIP Co de Phone Number [facility] [address] [address] * (ABNORMAL) DIFF MANUAL (03/24/2025 2:03 AM EDT) Only the most recent of2 resultswithin the time period is included. MYELOCYTE 1(H) 0 - 0 % [facility] MANUAL DIFFERENTIAL PERFORMED [facility] MORPHOLOGY NORMAL [facility] 03/24/2025 2:03 AM EDT 03/24/2025 2:16 AM EDT [facility] - 03/24/2025 3:16 AM EDT Release to patient->Immediate Unit Collect [facility] LAB BLOOD ORDERABLES Final Resul t Performing Organization Address [facility] Co de Phone Number [facility] [address] [address] * (ABNORMAL) CBC And Differential (03/24/2025 2:03 AM EDT) Only the most recent of5 resultswithin the time period is included. WBC 4.8 4.0 - 10.0 10 3/uL [facility] RBC 3.39(L) 3.80 - 5.20 10 6/uL [facility] HGB 10.8(L) 11.5 - 16.0 g/dL [facility] HCT 32(L) 40 - 52 % [facility] MCV 94 81 - 99 fL [facility] MCH 31.9 26.0 - 34.0 pg [facility] MCHC 34.0 32.0 - 36.0 g/dL [facility] RDW 13.7 11.5 - 15.0 % [facility] PLATELET COUNT 241 150 - 450 10 3/uL [facility] NEUTROPHILS 25(L) 43 - 75 % [facility] LYMPHOCYTES 68(H) 17 - 44 % [facility] MONOCYTES 6 4 - 15 % [facility] EOSINOPHILS 0 0 - 7 % [facility] BASOPHILS 0 0 - 2 % [facility] NEUTROPHIL # 1.2(L) 1.5 - 7.7 10 3/uL [facility] LYMPHOCYTE # 3.3 0.9 - 3.8 10 3/uL [facility] MONOCYTE # 0.3 0.2 - 1.0 10 3/uL [facility] EOSINOPHIL # 0.0 0.0 - 0.5 10 3/uL [facility] BASOPHIL # 0.0 0.0 - 0.2 10 3/uL [facility] Blood 03/24/2025 2:03 AM EDT 03/24/2025 2:16 AM EDT [facility] - 03/24/2025 3:16 AM EDT Release to patient->Immediate Unit Collect [facility] [employer] LAB BLOOD ORDERABLES Final Resul t [facility] [address] [place] [address] * (ABNORMAL) Basic metabolic panel (03/24/2025 2:03 AM EDT) Only the most recent of4 resultswithin the time period is included. SODIUM 132(L) 135 - 145 mmol/L [facility] POTASSIUM 4.1 3.5 - 5.1 mmol/L [facility] CHLORIDE 106 98 - 107 mmol/L [facility] CO2 27 20 - 31 mEq/L [facility] ANION GAP -1(L) 7 - 16 mmol/L [facility] BUN 19 9 - 23 mg/dL [facility] CREATININE 0.7 0.5 - 0.8 mg/dL [facility] GLUCOSE 115(H) 70 - 99 mg/dL [facility] Comment: Random Glucose range 60-140 mg/dL. Fasting Glucose range 60-99 mg/dL. CALCIUM 8.3 8.3 - 10.6 mg/dL [facility] Blood 03/24/2025 2:03 AM EDT 03/24/2025 2:16 AM EDT [facility] - 03/24/2025 2:41 AM EDT Release to patient->Immediate Unit Collect [facility] [employer] LAB BLOOD ORDERABLES Final Resul t [facility] [address] [place] [address] * Differential (03/23/2025 6:54 AM EDT) Only the most recent of3 resultswithin the time period is included. [facility]FFERENTIAL [facility] 03/23/2025 6:54 AM EDT 03/23/2025 7:03 AM EDT [facility] - 03/23/2025 7:26 AM EDT Release to patient->Immediate [facility] LAB BLOOD ORDERABLES Final Resul t Performing Organization Address City/[facility] Co de Phone Number [facility] [address] [place] [address] * Hold Lavender (03/23/2025 6:42 AM EDT) HOLD LAV Tube stored [facility] 03/23/2025 6:42 AM EDT 03/23/2025 7:07 AM EDT [facility] - 03/23/2025 7:07 AM EDT Release to patient->Immediate Unit Collect Alonzo Woodserson LAB BLOOD ORDERABLES Final Resul t Performing Organization Address [facility] de Phone Number [facility] [address] [place] [address] * Rapid Flu/RSV by PCR (03/20/2025 6:48 PM EDT) [facility] INFLUENZA A PCR Not detected Not detected [facility] Comment: Influenza A Sensitivity: >90% Specificity: >90% The performance characteristics of the PCR assay are dependent on the circulating strain of Influenza virus. The PCR assay compares closely to culture. INFLUENZA B PCR Not detected Not detected [facility] Comment: Influenza B Sensitivity: >80% Specificity: >90% The performance characteristics of the PCR assay are dependent on the circulating strain of Influenza virus. The PCR assay compares closely to culture. RAPID RSV BY PCR Not detected Not detected [facility] Comment: Sensitivity: >90% Specificity: >90% The performance characteristics of the RSV assay are dependent on the circulating strain of respiratory syncytial virus. The RSV assay compares closely to culture. Nasopharyngeal 03/20/2025 6: 48 PM EDT 03/20/2025 6:58 PM EDT [facility] - 03/20/2025 7:36 PM EDT Release to patient->Immediate Unit Collect Source->Nasopharyngeal Is this test for diagnosis or screening?->Diagnosis of ill patient Reason for COVID-19 test->Resident of [facility] (Bansal index case) Lab Collect Source->Nasopharyngeal Lab Collect us Abhi Encinas MD MICROBIOLOGY - GENERAL ORDERA BLES Final Result [facility] [address] [place] [address] * SARS-COV2 by Real Time-PCR (03/20/2025 6:48 PM EDT) SOURCE Nasopharyngeal [facility] SARS-CoV2 BY REAL TIME-PCR Not detected [facility] Comment: NEGATIVE RESULT A negative ( Not detected ) result does not preclude SARS-CoV-2 infection, and a negative result should not be used as the only basis for patient management decisions. A positive ( Detected ) result indicates the presence of SARS-CoV-2 RNA, the virus linked to COVID-19 disease. Testing was performed on the [employer] GeneXpert Infinity/DX System RT-PCR assay. This is a Food and drug Administration (FDA) cleared IVD, real-time RT-PCR assay which qualitatively detects nucleic acid from severe acute respiratory syndrome coronavirus 2 (SARS-Cov-2) in suitable respiratory specimen such as nasopharyngeal swabs and anterior nasal swabs. Nasopharyngeal 03/20/2025 6: 48 PM EDT 03/20/2025 6:58 PM EDT [facility] - 03/20/2025 7:36 PM EDT Release to patient->Immediate Unit Collect Source->Nasopharyngeal Is this test for diagnosis or screening?->Diagnosis of ill patient Reason for COVID-19 test->Resident of [facility] (Bansal index case) Lab Collect Source->Nasopharyngeal Lab Collect us Abhi Encinas MD MICROBIOLOGY - GENERAL ORDERA BLES Final Result Performing Organization Address [facility]/ZIP Co de Phone Number [facility] [address] [address] * (ABNORMAL) URINE MICROSCOPIC (03/20/2025 3:10 PM EDT) Only the most recent of2 resultswithin the time period is included. RBC, UR 0-2 /hpf [facility] WBC, UR 0-9 0 - 9 /hpf [facility] BACTERIA, UR PRESENT(A) [NEGATIVE] /hpf [facility] SQUAMOUS EPITH, UR PRESENT(A) [NEGATIVE] /lpf [facility] 03/20/2025 3:10 PM EDT 03/20/2025 3:15 PM EDT Narrative [facility] - 03/20/2025 3:54 PM EDT Release to patient->Immediate Unit Collect Release to patient->ImmediateClean Catch Type->Clean Catch Unit Collect Laura PEÑA LAB BLOOD ORDERABLES Final Result Performing Organization Address [facility] Co de Phone Number [facility] [address] [address] * URINE CULTURE (03/20/2025 3:10 PM EDT) Only the most recent of2 resultswithin the time period is included. URINE CULTURE No growth (<1,000 organisms/m l). [facility] 03/20/2025 3:10 PM EDT 03/20/2025 3:57 PM EDT Comment:URINE Narrative [facility] - 03/21/2025 4:30 PM EDT Release to patient->Immediate Unit Collect Release to patient->ImmediateClean Catch Type->Clean Catch Unit Collect Laura PEÑA MICROBIOLOGY - GENER AL ORDERABLES Final Result Performing Organization Address City/[facility]/ZIP Co de Phone Number [facility] [address] [address] * (ABNORMAL) Urinalysis W Reflex To Micro And Cul (03/20/2025 3:10 PM EDT) Only the most recent of2 resultswithin the time period is included. COLOR, UR YELLOW [facility] APPEARANCE, UR CLEAR [CLEAR] [facility] GLUCOSE, UR NEG [NEGATIVE] mg/dL [facility] KETONES, UR TRACE(A) [NEGATIVE] mg/dL [facility] SPEC GRAVITY 1.029 1.010 - 1.030 [facility] BLOOD, UR TRACE(A) [NEGATIVE] [facility] PH, UR 5.5 5.5 - 7.0 [facility] PROTEIN, UR NEG [NEGATIVE] mg/dL [facility] NITRITES, UR NEG [NEGATIVE] [facility] [place] ESTERASE, UR NEG [NEGATIVE] [facility] Urine 03/20/2025 3:10 PM EDT 03/20/2025 3:15 PM EDT Narrative [facility] - 03/20/2025 3:19 PM EDT Release to patient->Immediate Unit Collect Release to patient->ImmediateClean Catch Type->Clean Catch Unit Collect Laura PEÑA URINE ORDERABLES [facility] al Result [facility] [address] [place] [address] * HCG, Quantitative (03/20/2025 2:16 PM EDT) Only the most recent of2 resultswithin the time period is included. HCG BETA 3 mIU/mL [facility] Comment: Standardized to the WHO 4th IS 75/589 reference material. Elevated levels of HCG have also been detected in serum from patients with abnormal physiological conditions not related to . Time Post Conception: mIU/mL 0.2-1 week:...........5- 50 1-2 weeks:...........50- 500 2-3 weeks:..........100- 5,000 3-4 weeks:..........500- 10,000 4-5 weeks:........1,000- 50,000 5-6 weeks:.......10,000-100,000 6-8 weeks:.......15,000-200,000 2-3 months:......10,000-100,000 Blood 03/20/2025 2:16 PM EDT 03/20/2025 2:40 PM EDT [facility] - 03/20/2025 3:19 PM EDT Release to patient->Immediate Unit Collect Release to patient->ImmediateClean Catch Type->Clean Catch Unit Collect Laura PEÑA LAB BLOOD ORDERABLES Final Result Performing Organization Address [facility] de Phone Number [facility] [address] [place] [address] * (ABNORMAL) TSH (Thyroid Stimulating Hormone) (03/20/2025 2:16 PM EDT) TSH 5.38(H) 0.55 - 4.78 uIU/mL [facility] Comment: If patient is undergoing retinal fluorescein angiography, the result may be falsely depressed. Testing should be performed at least 7 days post-treatment. 03/20/2025 2:16 PM EDT 03/20/2025 2:40 PM EDT [facility] - 03/20/2025 7:23 PM EDT Release to patient->Immediate Unit Collect Release to patient->ImmediateClean Catch Type->Clean Catch Unit Collect Laura PEÑA LAB BLOOD ORDERABLES Final Result Performing Organization Address [facility] Co de Phone Number [facility] [address] [place], [place] [id number] * Free Thyroxine (03/20/2025 2:16 PM EDT) FREE T4 1.0 0.9 - 1.8 ng/dL [facility] 03/20/2025 2:16 PM EDT 03/20/2025 7:02 PM EDT [facility] - 03/20/2025 10:17 PM EDT Release to patient->Immediate Unit Collect Release to patient->ImmediateClean Catch Type->Clean Catch Unit Collect Laura PEÑA LAB BLOOD ORDERABLES Final Result [facility] [address] [place] [address] * Lipase (03/20/2025 2:16 PM EDT) Pathologist [facility] LIPASE 41 12 - 53 U/L [facility] Blood 03/20/2025 2:16 PM EDT 03/20/2025 2:39 PM EDT [facility] - 03/20/2025 3:20 PM EDT Release to patient->Immediate Unit Collect Release to patient->ImmediateClean Catch Type->Clean Catch Unit Collect Laura PEÑA LAB BLOOD ORDERABLES Final Result Performing Organization Address City/[facility]/ZIP Co de Phone Number [facility] [address] [place] [address] * (ABNORMAL) CMP (03/20/2025 2:16 PM EDT) Only the most recent of2 resultswithin the time period is included. SODIUM 137 135 - 145 mmol/L [facility] POTASSIUM 4.3 3.5 - 5.1 mmol/L [facility] CHLORIDE 105 98 - 107 mmol/L [facility] CO2 22 20 - 31 mEq/L [facility] ANION GAP 10 7 - 16 mmol/L [facility] BUN 17 9 - 23 mg/dL [facility] CREATININE 0.7 0.5 - 0.8 mg/dL [facility] GLUCOSE 174(H) 70 - 100 mg/dL [facility] Comment: Random Glucose range 60-140 mg/dL. Fasting Glucose range 60-99 mg/dL. CALCIUM 9.3 8.3 - 10.6 mg/dL [facility] TOTAL PROTEIN 8.6(H) 5.7 - 8.2 g/dL [facility] ALBUMIN 4.6 3.2 - 4.8 g/dL [facility] GLOBULIN 4.0(H) 1.6 - 3.6 g/dL [facility] BILI, TOTAL 0.3 0.3 - 1.2 mg/dL [facility] AST 33 7 - 37 U/L [facility] ALT 37 10 - 49 U/L [facility] ALK PHOS 69 46 - 116 U/L [facility] Blood 03/20/2025 2:16 PM EDT 03/20/2025 2:39 PM EDT Narrative [facility] - 03/20/2025 3:20 PM EDT Release to patient->Immediate Unit Collect Release to patient->ImmediateClean Catch Type->Clean Catch Unit Collect Laura PEÑA LAB BLOOD ORDERABLES Final Result Performing Organization Address City/State/[facility] Co de Phone Number [facility] [address] [place] [address] * CT RENAL COLIC (03/12/2025 3:30 PM EDT) Only the most recent of2 resultswithin the time period is included. Anatomical Region Laterality Modality Abdomen, Pelvis, Hip Computed To mography 03/12/2025 3:33 PM EDT Narrative 03/12/2025 3:50 PM EDT Indication: Other, Unlisted Indication - See Comments. Flank pain Technique: Axial images of the abdomen from the diaphragm through the pubic symphysis were obtained without IV contrast. Coronal and sagittal reformats were also obtained. Comparison: 03/09/25 Findings: Abdomen: Kidneys: Punctate bilateral nonobstructing renal calculi. Left inferior pole renal scarring. No hydronephrosis. Bladder: Normal. No bladder calculus or wall thickening. Lung bases: 2 to 3 mm pulmonary nodule lung bases, stable. Visualized heart, pericardium and retrocrural space: Normal. Stomach/Distal esophagus: Normal. Bowel and mesentery: Colonic diverticulosis. Liver: Hepatic steatosis. Portal vein/superior mesenteric vein: Normal in size. Gallbladder and bile ducts: Normal. Spleen: Normal. Pancreas: Normal. Adrenal Glands: Normal. Pelvis: Appendix: Normal. Reproductive organs: Normal. Free fluid: None. Groin regions: Normal. Misc: Lymphatics/nodes: No lymphadenopathy. Vasculature: Mild atherosclerosis. Subcutaneous soft tissues: Normal. Bones: Mild degenerative changes. Stable grade 1 retrolisthesis of L2 on L3. Postoperative changes of laminectomies at L3. IMPRESSION: Punctate renal calculi bilaterally. No hydronephrosis. Signed by Attending: Shakira Taylor MD on 03/12/2025 3:50 PM Procedure Note Shakira Taylor MD - 03/12/2025 Indication: Other, Unlisted Indication - See Comments. Flank pain Technique: Axial images of the abdomen from the diaphragm through thepubic symphysis were obtained without IV contrast. Coronal and sagittalreformats were also obtained. Comparison: 03/09/25 Findings: Abdomen: Kidneys: Punctate bilateral nonobstructing renal calculi. Left inferiorpole renal scarring. No hydronephrosis. Bladder: Normal. No bladder calculus or wall thickening. Lung bases: 2 to 3 mm pulmonary nodule lung bases, stable. Visualized heart, pericardium and retrocrural space: Normal. Stomach/Distal esophagus: Normal. Bowel and mesentery: Colonic diverticulosis. Liver: Hepatic steatosis. Portal vein/superior mesenteric vein: Normal in size. Gallbladder and bile ducts: Normal. Spleen: Normal. Pancreas: Normal. Adrenal Glands: Normal. Pelvis: Appendix: Normal. Reproductive organs: Normal. Free fluid: None. Groin regions: Normal. Misc: Lymphatics/nodes: No lymphadenopathy. Vasculature: Mild atherosclerosis. Subcutaneous soft tissues: Normal. Bones: Mild degenerative changes. Stable grade 1 retrolisthesis of L2 onL3. Postoperative changes of laminectomies at L3. IMPRESSION: Punctate renal calculi bilaterally. No hydronephrosis. Signed by Attending: Shakira Taylor MD on 03/12/2025 3:50 PM Dara Grider MD IM CT ORDERABLES Final Resu lt * (ABNORMAL) CBC (03/10/2025 4:10 AM EDT) WBC 7.2 4.0 - 10.0 10 3/uL [facility] RBC 3.43(L) 3.80 - 5.20 10 6/uL [facility] HGB 10.8(L) 11.5 - 16.0 g/dL [facility] HCT 33(L) 40 - 52 % [facility] MCV 95 81 - 99 fL [facility] MCH 31.5 26.0 - 34.0 pg [facility] MCHC 33.0 32.0 - 36.0 g/dL [facility] RDW 13.5 11.5 - 15.0 % [facility] PLATELET COUNT 243 150 - 450 10 3/uL [facility] Blood 03/10/2025 4:10 AM EDT 03/10/2025 4:14 AM EDT Narrative [facility] - 03/10/2025 4:21 AM EDT Release to patient->Immediate Lab Collect Jessica Darby PA-C LAB BLOOD ORDERABLES Final Result [facility] [address] [place] [address] * SCAN/TX LAB PROCEDURE (03/09/2025 12:00 AM EDT) Default Authenticator [facility] LAB SEND OUT ORDERABLE S Final Result * Gynecologic Specimen, Screening (08/26/2021 12:00 AM EST) Other-See Comments 08/26/2021 08/26/2021 10:00 PM EST Comment:PAP TEST, LIQUID BAS ED Narrative [facility] - 09/10/2021 8:54 [place] [address] Corporate Location: [facility] Facility Patient: HENRIETTA CALVILLO date: 1975 Age; Sex: 46; F Procedure date: 08/26/2021 Ordering physician: Anne Escobar MD CASE: [id number] Clinical History: HPV COTEST (>30 YRS OLD) LMP: 07/19/2021 SPECIMEN: PAP TEST, LIQUID BASED , Cervical/Endocervical Slides reviewed: 1 FINAL INTERPRETATION: NEGATIVE FOR INTRAEPITHELIAL LESION OR MALIGNANCY. HPV RESULTS: NEGATIVE for HPV 16 NEGATIVE for HPV 18 NEGATIVE for HPV 45 NEGATIVE for other high risk HPV types HPV COMMENTS: HPV testing performed on Lexaralarity HPV Assay, at [facility], [address] [place] [address]. Reference range: Negative. See ASCCP guidelines for age appropriate management of screening results (www.asccp.org). SPECIMEN ADEQUACY: Satisfactory for evaluation; endocervical/transformation zone component present. Final Interpretation performed by Ana NEGRETE (ASCP) Electronically Signed and Reported 09/03/2021 8:09:38AM Results reported at [facility] [address] [place], [address] FDA Disclaimer (applicable only if HPV testing results are included in this report). The test was developed and its performance characteristics determined by [facility]. The test was reviewed and approved by the [facility]. It has not been cleared or approved by the U.S. Food and Drug administration (FDA) using SurePath media. The test is used for clinical purposes and should be regarded as investigational or for research. This laboratory is regulated under the Clinical Laboratory Improvement Amendments of 1988 (CLIA) as qualified to perform high complexity clinical testing. 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
[2025-05-03 18:47] VITALS: BP 104/70; PULSE 85; RESP 17; O2SAT 99
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
[2025-05-03] MEDS: oxyCODONE 5 mg IR Tab/Cap 15 MG PO (19:38)
[2025-05-03 19:41] VITALS: BP 120/89; PULSE 80; RESP 17; O2SAT 100
[2025-05-03 20:18] LABS: Hematocrit 34.5 % (36-47); Hemoglobin 11.30 g/dL (11.27-16.99); Mean Corpuscular HGB Conc 32.8 g/dL (30-55); Mean Corpuscular Hemoglobin 32.8 pg (27-33); Mean Corpuscular Volume 100.3 fl (85-98); Nucleated Red Blood Cells % 0 %; Platelet Count 259 10^3/cmm (157-399); Red Blood Count 3.44 10^6/uL (3.85-5.65); White Blood Count 7.37 10^3/uL (3.29-11.43)
[2025-05-03 20:36] LABS: Glucose Urine UA Negative (Normal); Nitrate Urine Negative (Negative); Specific Gravity, Urine 1.029 (1.005-1.030)
[2025-05-03 20:38] LABS: Add Urine Microscopic? YES
[2025-05-03 20:39] LABS: Alanine Aminotransferase 32 U/L (0-33); Albumin Level 3.8 g/dL (3.5-5.2); Alkaline Phosphatase 80 U/L (35-105); Anion Gap 17.9 (5-19); Aspartate Amino Transferase 23 U/L (0-32); Blood Urea Nitrogen 17 mg/dL (6-20); Calcium 8.6 mg/dL (8.5-10.5); Carbon Dioxide 21 mmol/L (22-29); Chloride 109 mmol/L (98-107); Creatinine Clr Calc Pharmacy 127.2315; Globulin 2.9 g/dL (1.3-4.6); Glucose 116 mg/dL (65-115); Osmolality Calculated 301 mOsm/kg (285-295); Potassium 3.9 mmol/L (3.5-5.1); Sodium 144 mmol/L (136-145); Total Protein 6.7 g/dL (6.6-8.7)
[2025-05-03 21:35] VITALS: BP 123/92; PULSE 73; RESP 16; O2SAT 95
[2025-05-03 23:00] VITALS: PULSE 78; O2SAT 100
[2025-05-03 23:43] VITALS: BP 129/89; PULSE 74; RESP 16; O2SAT 99
--- NOTE | 2025-05-04 00:24 | P.HP_ITS ---
Providers/Chief Complaint 2 Admitting Physician: Rubin Burr MD Chief Complaint: sob History of Present Illness 49-year-old female with a complex medical history including myasthenia gravis (diagnosed in 2019 at [facility] in [place], [place]), narcolepsy, hypertension, chronic kidney stones with prior urologic surgeries, dystonia treated with botulinum injections, chronic leg pain, and recent lumbar spine surgery, who [place] of [place] with a flare of her myasthenia gravis and worsening bilateral flank pain. She arrived in [place] on April 13 for vacation and has been staying with a friend locally. She was due for her routine IVIG infusion (Privigen) on April 29?, which she receives every three weeks, but was unable to return to [place] for it as planned. During this time, she had been camping in the [facility] and experienced prolonged heat exposure, limited access to hydration, and multiple tick bites?she reports pulling off roughly 30 ticks. She attributes the combination of missed IVIG and dehydration as contributing factors to her current MG flare. Over the past five days, she has experienced increasing fatigue, head drop, fluctuating dysarthria, intermittent shortness of breath, and profound generalized weakness?all consistent with prior exacerbations. She remains under the care of neurologist Dr. Haydee Chappell at [facility] and has an implanted port for IVIG access that has been in place for three years. In addition to the MG symptoms, she endorses persistent, bilateral flank pain that began a few weeks ago and has progressively worsened. She describes the pain as constant and non-radiating, currently rated 8/10 in severity, and similar to prior episodes of nephrolithiasis, which she has experienced since age 15. She has undergone multiple surgeries for stone removal in both kidneys. She is uncertain whether she has had hematuria with this episode and denies dysuria. Despite her extensive history of nephrolithiasis, her current urinalysis does not show hematuria or pyuria, and no renal colic symptoms are reported. She also has a history of narcolepsy managed with Adderall 20 mg BID, dystonia managed with periodic neck Botox injections (now overdue due to a missed appointment prior to her trip), and hypothyroidism for which she was previously on levothyroxine. She reports recent normal thyroid labs and is not currently taking replacement therapy. Her antihypertensive regimen includes losartan 25 mg daily, and she also takes gabapentin 900 mg at night for chronic leg pain. She reports a back surgery performed on January 13 involving L2?L4 decompression, with a planned second procedure scheduled for May. She denies fever, chills, nausea, vomiting, or chest pain. She does report mild shortness of breath, which she attributes to her MG. She notes recent diarrhea over the past two days and is concerned about potential tick-borne illness, especially in light of her outdoor exposure and multiple bites. A tick panel was sent in the emergency department. Initial labs were notable for a WBC of 7.3, Hgb 11.3, MCV 100.3, Cr 0.7, and a normal metabolic panel. Urinalysis showed concentrated urine with 4+ bacteria and 11?20 squamous cells but no blood or leukocyte esterase, suggesting possible contamination. Vitals on arrival were stable except for a mild tachycardia (HR 102). She was treated with oxycodone and a nicotine patch in the ED. She is requesting to resume IVIG. Review of Systems 2 General: Reports: 10 or more systems reviewed and unremarkable except in HPI and below Medications/Allergies Allergies Allergy/AdvReac Type Severity Reaction Status Date / Time adhesive tape Allergy ALGY-Bliste Verified 05/03/25 17:07 r morphine Allergy ALGY-Hives Verified 05/03/25 17:07 shellfish derived Allergy ALGY-Anaphy Verified 05/03/25 17:07 laxis sulfamethoxazole (From Allergy Unknown Verified 05/03/25 17:07 Bactrim) trimethoprim (From Bactrim) Allergy Unknown Verified 05/03/25 17:07 lorazepam AdvReac ADR-Cough Verified 05/03/25 17:07 Vitals/I&O/Wt Last Vital Signs Temp 98.1 F 05/03/25 17:01 Pulse 74 05/03/25 23:43 Resp 16 05/03/25 23:43 BP 129/89 05/03/25 23:43 Pulse Ox 99 05/03/25 23:43 O2 Del Method Room Air 05/03/25 23:43 Weight last 48 hrs Weight 107.955 kg Physical Exam 2 Narrative: General: NAD HEENT: Grossly unremarkable CV: No CP Respiratory: Non-labored respiration Abdomen: Soft, non-tender. Neuro: Moving all extremities. Back: No CVA tenderness. Skin: NAD. Data 05/03/25 20:13 05/03/25 20:13 A&P Assessment and plan 1. Myasthenia gravis with exacerbation: 2. Flank pain: 3. Tick bite: Plan: Impression: 49-year-old female with a complex medical history including myasthenia gravis on IVIG, chronic pain, narcolepsy, hypothyroidism, and recurrent nephrolithiasis presents with an acute MG exacerbation after missing her scheduled IVIG infusion. Presentation is complicated by recent dehydration, multiple tick exposures, and new-onset bilateral flank pain. Patient is currently hemodynamically stable. Additional workup and management ongoing. # Myasthenia Gravis Exacerbation Acute exacerbation of known MG, precipitated by a missed IVIG infusion and likely worsened by dehydration. Current symptoms include ptosis, dysarthria, neck weakness, generalized weakness, and SOB. Records will be requested from her neurologist in [place] to confirm diagnosis and treatment plan. Plan: Verify IVIG formulation (Privigen) and dose with pharmacy and via records request. Administer IVIG once confirmed. Monitor respiratory status and muscle strength. # Bilateral Flank Pain Patient reports constant, 8/10 bilateral flank pain for several weeks, suspicious for nephrolithiasis given extensive history. Exam is benign with no CVA tenderness. UA was contaminated but showed no hematuria. Kidney function is normal. Plan: Will monitor pain. If pain worsens or fails to improve, will consider CT abdomen/pelvis to evaluate for nephrolithiasis or other intra-abdominal pathology. Pain management with PRN analgesics. # Possible Tick-Borne Illness Patient reports approximately 30 tick bites while camping for two weeks prior to admission. Afebrile however. Plan: Tick panel sent from ER. Await results and treat accordingly if positive. # Dystonia Patient has a history of dystonia treated with Botox injections to the neck. She is overdue for her injection, having missed her last appointment. Plan: This is a chronic issue that cannot be managed in the inpatient setting. Patient will need to follow up with her neurologist as an outpatient to get botox # Hypertension Continue Losartan 25 mg daily. # Hypothyroidism No longer on levothyroxine. # Chronic Pain / Narcolepsy Continue gabapentin 900 mg at night for chronic leg pain. Continue Adderall 20 mg BID. Patient has requested to hold this while inpatient. # GERD Start Protonix for heartburn symptoms. # Insomnia Start melatonin as requested for sleep. #DVT Prophylaxis Lovenox 40 mg SQ daily PDMP PDMP Reviewed: Not Reviewed Attestations 2 Medical Necessity Statement*: Anticipate 1-2 day of hospitalization for managment of acute issues noted above. Coding Level of Care Code Acute Code for g Fwd Diagnoses Myasthenia gravis with exacerbation G70.01 Flank pain R10.9 Tick bite W57.XXXA
[2025-05-04 00:49] VITALS: BP 154/88; PULSE 69; RESP 16; TEMP 36.4; O2SAT 97
[2025-05-04] MEDS: MELATONIN 3 MG TABLET PO (01:58)
[2025-05-04 02:00] VITALS: BMI 34.1
[2025-05-04 03:38] LABS: PCP Screen Urine Negative (Negative)
[2025-05-04 04:00] VITALS: BP 155/74; PULSE 72; RESP 16; TEMP 36.4; O2SAT 97
[2025-05-04 07:37] VITALS: BP 137/89; PULSE 59; RESP 16; TEMP 36.5; O2SAT 98
[2025-05-04 09:36] LABS: Procalcitonin 0.05 ng/mL (0-0.5)
[2025-05-04 11:40] VITALS: BP 118/84; PULSE 71; RESP 17; TEMP 36.4; O2SAT 100
--- NOTE | 2025-05-04 14:38 | P.PN_ITS ---
Subjective 2 Subjective: Patient was seen this morning, currently alert oriented x 3, following all commands - She does report bilateral eye drooping , weakness, fatigue, intermittent trouble swallowing, no trouble breathing - She tells me that she has had multiple episodes of myasthenia exacerbations in the past, this seems very similar, she has never been intubated for myasthenia exacerbation # She was supposed to have her IVIG infusion, but she specifically request privigen, she tells me that she has had adverse reactions to gummanex - She does report tick bites, no fevers, no chills, discussed with her her urine being positive for methamphetamines, she tells me that she has been using marijuana but denies any methamphetamine use - Reached out to patient's neurologist [facility], neurologist advises me that patient has had adverse reactions/poor response to Gummanex, she does better with Prevagen, henry likes to travel, this is happened before when she went out to [place], typically after receiving a couple doses of Privigen she gets better - Will arrange Privigen for her Vitals/I&O/Wt Last Vital Signs Temp 97.6 F 05/04/25 11:40 Pulse 71 05/04/25 11:40 Resp 17 05/04/25 11:40 BP 118/84 05/04/25 11:40 Pulse Ox 100 05/04/25 11:40 O2 Del Method Room Air 05/04/25 11:40 05/03/25 05/04/25 05/04/25 22:59 06:59 14:59 Intake Total 896.667 / 896.667 Output Total 600 / 600 Balance - 296.667 / 296.667 Weight last 48 hrs Weight 105.233 kg Weight 104.78 kg Weight 107.955 kg Physical Exam 2 Const: COMMON NORMALS: no acute distress and patient oriented x3 Resp: COMMON NORMALS: normal respiratory effort, No retractions, No use of accessory muscles and clear to auscultation bilaterally AUSCULTATION: clear to auscultation bilaterally Cardio: COMMON NORMALS: regular rate, regular rhythm, S1 normal heart sound present and S2 normal heart sound present RATE: regular rate RHYTHM: r egular rhythm HEART SOUNDS: S1 normal heart sound present and S2 normal heart sound present GI: COMMON NORMALS: Normal to inspection, nondistended, normoactive bowel sounds present and non-tender Extremity: COMMON NORMALS: no pedal edema Neuro: COMMON NORMALS: patient oriented x3 Psych: COMMON NORMALS: mental status grossly normal Data 05/03/25 20:13 05/03/25 20:13 A&P Assessment and plan 1. Myasthenia gravis with exacerbation: 2. Flank pain: 3. Tick bite: Plan: # Myasthenia Gravis Exacerbation Plan: Privigen dosing over the next 5 days Administer IVIG once confirmed. Monitor respiratory status and muscle strength. # Bilateral Flank Pain No complaints this morning Plan: Will monitor pain # Possible Tick-Borne Illness Patient reports approximately 30 tick bites while camping for two weeks prior No bull's-eye rash Plan: Start doxycycline # Dystonia Plan: Follow-up with primary care # Hypertension Hold # Hypothyroidism Check TSH # Chronic Pain / Narcolepsy Confirm gabapentin dosing Continue Adderall 20 mg BID. Patient has requested to hold this while inpatient. # GERD protonix # Insomnia Start melatonin as requested for sleep. #DVT Prophylaxis Lovenox 40 mg SQ daily PDMP PDMP Reviewed: Not Reviewed Attestations 2 Medical Necessity Statement*: Patient requires hospitalization for myasthenia gravis exacerbation Diagnoses Myasthenia gravis with exacerbation G70.01 Flank pain R10.9 Tick bite W57.XXXA
[2025-05-04 16:00] VITALS: BP 136/88; PULSE 79; RESP 17; TEMP 36.8; O2SAT 96
[2025-05-04 20:00] VITALS: BP 144/89; PULSE 95; RESP 17; TEMP 36.4; O2SAT 98
[2025-05-05] VITALS (10 sets, daily range): BP systolic 129–156; BP diastolic 70–109; PULSE 73–90; RESP 15–19; TEMP 36.6–36.9; O2SAT 95–98
[2025-05-05] MEDS: oxyCODONE-APAP 10-325 mg Tablet 1 TAB PO ×3 (00:21→17:33)
[2025-05-05] MEDS: MELATONIN 3 MG TABLET PO ×2 (00:23→21:23)
[2025-05-05 05:09] LABS: Hematocrit 33.2 % (36-47); Hemoglobin 10.90 g/dL (11.27-16.99); Mean Corpuscular HGB Conc 32.8 g/dL (30-55); Mean Corpuscular Hemoglobin 32.2 pg (27-33); Mean Corpuscular Volume 98.2 fl (85-98); Nucleated Red Blood Cells % 0 %; Platelet Count 222 10^3/cmm (157-399); Red Blood Count 3.38 10^6/uL (3.85-5.65); White Blood Count 5.42 10^3/uL (3.29-11.43)
[2025-05-05 05:30] LABS: Anion Gap 14.1 (5-19); Blood Urea Nitrogen 14 mg/dL (6-20); Calcium 8.6 mg/dL (8.5-10.5); Carbon Dioxide 25 mmol/L (22-29); Chloride 104 mmol/L (98-107); Creatinine Clr Calc Pharmacy 125.5605; Glucose 103 mg/dL (65-115); Osmolality Calculated 289 mOsm/kg (285-295); Potassium 4.1 mmol/L (3.5-5.1); Sodium 139 mmol/L (136-145)
[2025-05-05] MEDS: IMMUNE GLOBULIN IV (09:57)
--- NOTE | 2025-05-05 14:24 | P.PN_ITS ---
Subjective 2 Subjective: Patient was seen this morning, tells me that her drooping of her bilateral eyelids has improved, her strength is improving, no difficulty swallowing, no difficulty breathing, does report anxiety - Nursing staff report that patient left the unit early this morning, without her knowledge - Spoke to patient, patient reports that she is very anxious, discussed trying anxiety medication such as Xanax to help with her anxiety - Henrietta tells me that she wants to leav e the floors, she wants to go outside she wants, breath of fresh air - Discussed that that is against our hos pital policy, the medical floors are a locked unit, and she is not allowed to leave the floors she can walk around her room, but she is not allowed to leave the medical floors and if she does it would be considered elopement - henrietta tells me that she does not know how long she can stay here in the hospital, discussed morbidity and mortality associated with her myasthenia exacerbation, she needs provision infusion I can consider shortening the course based on her clinical progress but she is going to need further treatment and monitoring as inpatient - Discussed morbidity and mortality of l eaving AGAINST MEDICAL ADVICE, patient voiced understanding, all questions answered, - Discussed that she is not allowed to l eave the unit for any reason - She does have an emotional support ani mal, nursing staff or security will walk or let the animal out as needed, Vitals/I&O/Wt Last Vital Signs Temp 97.9 F 05/05/25 12:00 Pulse 88 05/05/25 12:00 Resp 16 05/05/25 12:00 BP 156/109 05/05/25 13:08 Pulse Ox 96 05/05/25 12:00 O2 Del Method Room Air 05/05/25 12:00 05/04/25 05/05/25 05/05/25 22:59 06:59 14:59 Intake Total 120 / 1016.667 400 / 1416.667 200 / 200 Output Total 150 / 750 400 / 1150 Balance -30 / 266.667 0 / 266.667 200 / 200 Weight last 48 hrs Weight 105.233 kg Weight 105.233 kg Weight 104.78 kg Weight 107.955 kg Physical Exam 2 Const: COMMON NORMALS: no acute distress and patient oriented x3 Resp: COMMON NORMALS: normal respiratory effort, No retractions, No use of accessory muscles and clear to auscultation bilaterally AUSCULTATION: clear to auscultation bilaterally Cardio: COMMON NORMALS: regular rate, regular rhythm, S1 normal heart sound present and S2 normal heart sound present RATE: regular rate RHYTHM: r egular rhythm HEART SOUNDS: S1 normal heart sound present and S2 normal heart sound present GI: COMMON NORMALS: Normal to inspection, nondistended, normoactive bowel sounds present and non-tender Extremity: COMMON NORMALS: no pedal edema Neuro: COMMON NORMALS: patient oriented x3, CN's II-XII intact bilaterally, moves all extremities and no focal motor deficits Psych: COMMON NORMALS: mental status grossly normal Data 05/05/25 04:47 05/05/25 04:47 A&P Assessment and plan 1. Myasthenia gravis with exacerbation: 2. Flank pain: 3. Tick bite: Plan: # Myasthenia Gravis Exacerbation Plan: Privigen dosing over the next 5 days Administer IVIG once confirmed. Monitor respiratory status and muscle strength. # Bilateral Flank Pain No complaints this morning Plan: Will monitor pain # Possible Tick-Borne Illness Patient reports approximately 30 tick bites while camping for two weeks prior No bull's-eye rash Plan: doxycycline # Dystonia Plan: Follow-up with primary care # Hypertension Hold # Hypothyroidism Check TSH # Chronic Pain / Narcolepsy Confirm gabapentin dosing Continue Adderall 20 mg BID. Patient has requested to hold this while inpatient. # GERD protonix # Insomnia Start melatonin as requested for sleep. #DVT Prophylaxis Lovenox 40 mg SQ daily PDMP PDMP Reviewed: Not Reviewed Attestations 2 Medical Necessity Statement*: Patient requires hospitalization for myasthenia gravis exacerbation Diagnoses Myasthenia gravis with exacerbation G70.01 Flank pain R10.9 Tick bite W57.XXXA
--- NOTE | 2025-05-05 17:50 | PC.NURSE ---
Earlier today pt walked off the floor with her dog and her IV pump. She walked down to the ER entrance to try to get clothes out of her van and did not notify that she was doing so. Pt is completely A&O x4, up ad guy. Pt was found by ER staff and House Sup as well as Security was notified. EsperanzaRN, and Emma in Security escorted pt safely back up to the [facility] floor, room 273. When this nurse spoke to pt, pt was distraught stating that she felt like a prisoner and that she WILL sneak out again This was witnessed being said by Dr. Peña as well. This nurse explained to pt that she can walk around on the unit here and does not have to stay confined to her room. Pt yelled I don't want to walk around inside. I need some fucking air. Dr. Peña placed an order for Xanax and this nurse administered medication to pt. Pt did say she felt better about 45 minutes after taking Xanax. Pt is going to be moved to a room closer to the nurses station.
[2025-05-06] VITALS (8 sets, daily range): BP systolic 112–148; BP diastolic 68–87; PULSE 70–84; RESP 15–18; TEMP 36.3–36.9; O2SAT 96–97
[2025-05-06] MEDS: oxyCODONE-APAP 10-325 mg Tablet 1 TAB PO ×2 (02:25→17:00)
[2025-05-06] MEDS: IMMUNE GLOBULIN IV (12:16)
--- NOTE | 2025-05-06 12:29 | PC.NURSE ---
In room to access patient's port because she had them de-access it last night. Patient states, Do you know what you are doing. It took them 4 tries in the ER. IF you don't know what your doing get someone else. Attempted to place the needle and patient pushed her shoulder down and yelled I told you that you did not know what you are doing. It should not hurt take it out and get someone who knows what they are doing. Wanda WONG to try at this time.
--- NOTE | 2025-05-06 13:34 | PC.NURSE ---
Patients port was de-accessed last night on machine printer hose by JUDITH Orr due to patient request. Pt has delayed Immune Globulin infusion by 4.5hrs due to several requests to go outside to her car, take a shower without the port, and at one point requesting to be discharged today. Immune Globulin was re-timed. Port was re-accessed by JUDITH Sanchez and infusion was started.
--- NOTE | 2025-05-06 14:11 | P.PN_ITS ---
Subjective 2 Subjective: Patient was seen this morning, currently alert oriented x 3, following all commands, denies any chest pain, palpitation, shortness of breath her strength is improving, no diplopia, no trouble swallowing, no trouble breathing, Vitals/I&O/Wt Last Vital Signs Temp 97.4 F L 05/06/25 07:54 Pulse 70 05/06/25 07:54 Resp 17 05/06/25 07:54 BP 139/86 05/06/25 08:44 Pulse Ox 97 05/06/25 07:54 O2 Del Method Room Air 05/06/25 07:54 05/05/25 05/06/25 05/06/25 22:59 06:59 14:59 Intake Total 422 / 622 480 / 1102 240.517 / 240.517 Output Total 800 / 800 Balance 422 / 622 -320 / 302 240.517 / 240.517 Weight last 48 hrs Weight 105.233 kg Weight 105.233 kg Physical Exam 2 Const: COMMON NORMALS: no acute distress and patient oriented x3 Resp: COMMON NORMALS: normal respiratory effort, No retractions, No use of accessory muscles and clear to auscultation bilaterally AUSCULTATION: clear to auscultation bilaterally Cardio: COMMON NORMALS: regular rate, regular rhythm, S1 normal heart sound present and S2 normal heart sound present RATE: regular rate RHYTHM: r egular rhythm HEART SOUNDS: S1 normal heart sound present and S2 normal heart sound present GI: COMMON NORMALS: Normal to inspection, nondistended, normoactive bowel sounds present Extremity: COMMON NORMALS: no pedal edema Neuro: COMMON NORMALS: patient oriented x3 Psych: COMMON NORMALS: mental status grossly normal Data 05/05/25 04:47 05/05/25 04:47 A&P Assessment and plan 1. Myasthenia gravis with exacerbation: 2. Flank pain: 3. Tick bite: Plan: # Myasthenia Gravis Exacerbation Plan: Privigen dosing over the next 5 days, Administer IVIG once confirmed. Monitor respiratory status and muscle strength. # Bilateral Flank Pain No complaints this morning Plan: Will monitor pain # Possible Tick-Borne Illness Patient reports approximately 30 tick bites while camping for two weeks prior No bull's-eye rash Plan: doxycycline # Dystonia Plan: Follow-up with primary care # Hypertension Hold # Hypothyroidism # Chronic Pain / Narcolepsy Confirm gabapentin dosing Continue Adderall 20 mg BID. Patient has requested to hold this while inpatient. # GERD protonix # Insomnia Start melatonin as requested for sleep. #DVT Prophylaxis Lovenox 40 mg SQ daily PDMP PDMP Reviewed: Not Reviewed Attestations 2 Medical Necessity Statement*: Patient requires hospitalization for myasthenia exacerbation Diagnoses Myasthenia gravis with exacerbation G70.01 Flank pain R10.9 Tick bite W57.XXXA
[2025-05-06] MEDS: MELATONIN 3 MG TABLET PO (21:27)
[2025-05-06] MEDS: HYDROmorphone tab 2 MG TABLET 4 MG PO (21:30)
[2025-05-06] MEDS: ondansetron 2 mg/ML SDV 2 mL 4 MG IVP (22:29)
[2025-05-07] VITALS (9 sets, daily range): BP systolic 111–145; BP diastolic 71–100; PULSE 68–96; RESP 16–18; TEMP 36.3–36.9; O2SAT 92–98
[2025-05-07 07:22] LABS: Hematocrit 36.4 % (36-47); Hemoglobin 11.90 g/dL (11.27-16.99); Mean Corpuscular HGB Conc 32.7 g/dL (30-55); Mean Corpuscular Hemoglobin 32.2 pg (27-33); Mean Corpuscular Volume 98.6 fl (85-98); Nucleated Red Blood Cells % 0 %; Platelet Count 223 10^3/cmm (157-399); Red Blood Count 3.69 10^6/uL (3.85-5.65); White Blood Count 4.16 10^3/uL (3.29-11.43)
[2025-05-07 07:44] LABS: Alanine Aminotransferase 27 U/L (0-33); Albumin Level 3.3 g/dL (3.5-5.2); Alkaline Phosphatase 69 U/L (35-105); Anion Gap 14.4 (5-19); Aspartate Amino Transferase 26 U/L (0-32); Blood Urea Nitrogen 19 mg/dL (6-20); Calcium 9.1 mg/dL (8.5-10.5); Carbon Dioxide 23 mmol/L (22-29); Chloride 101 mmol/L (98-107); Creatinine Clr Calc Pharmacy 125.2996; Globulin 4.8 g/dL (1.3-4.6); Glucose 98 mg/dL (65-115); Osmolality Calculated 280 mOsm/kg (285-295); Potassium 4.4 mmol/L (3.5-5.1); Sodium 134 mmol/L (136-145); Total Protein 8.1 g/dL (6.6-8.7)
[2025-05-07] MEDS: IMMUNE GLOBULIN IV (08:45)
--- NOTE | 2025-05-07 10:00 | PC.NURSE ---
Patient eloped at this time.
--- NOTE | 2025-05-07 10:40 | PC.NURSE ---
Walked patient back from her private car where she was sitting in the back of it smoking. Explained to the patient that if she returned to the floor she will not be able to leave again until discharge time. This nurse , the primary nurse, security, and the oil house attendant were all present when patient verbally agreed.
--- NOTE | 2025-05-07 14:20 | PM.PN ---
Subjective Subjective: Patient was seen this morning, currently alert oriented x 3, following all commands, denies any fevers, no chills, no cough, strength is improving, she plans on returning back to [facility] tomorrow via driving, she is ambulating care, denies any lightheadedness, no dizziness Vitals/I&O/Wt Last Vital Signs Temp 97.3 F L 05/07/25 11:39 Pulse 96 05/07/25 11:39 Resp 16 05/07/25 11:39 BP 138/100 05/07/25 11:39 Pulse Ox 92 05/07/25 11:39 O2 Del Method Room Air 05/07/25 11:39 05/06/25 05/07/25 05/07/25 22:59 06:59 14:59 Intake Total 579.483 / 820.000 440 / 1260.000 486.2 / 486.2 Balance 579.483 / 820.000 440 / 1260.000 486.2 / 486.2 Weight last 48 hrs Weight 104.808 kg Weight 105.233 kg Physical Exam Const: COMMON NORMALS: no acute distress and patient oriented x3 Resp: COMMON NORMALS: normal respiratory effort, No retractions, No use of accessory muscles and clear to auscultation bilaterally AUSCULTATION: clear to auscultation bilaterally Cardio: COMMON NORMALS: regular rate, regular rhythm, S1 normal heart sound present and S2 normal heart sound present RATE: regular rate RHYTHM: regular rhythm HEART SOUNDS: S1 normal heart sound present and S2 normal heart sound present GI: COMMON NORMALS: Normal to inspection, nondistended, normoactive bowel sounds present and non-tender Extremity: COMMON NORMALS: no pedal edema Neuro: COMMON NORMALS: patient oriented x3 Psych: COMMON NORMALS: mental status grossly normal Data 05/07/25 07:15 05/07/25 07:15 A&P Assessment and plan 1. Myasthenia gravis with exacerbation: 2. Flank pain: 3. Tick bite: Plan: # Myasthenia Gravis Exacerbation Plan: Privigen dosing over the next 5 days, Administer IVIG once confirmed. Monitor respiratory status and muscle strength. # Bilateral Flank Pain No complaints this morning Plan: Will monitor pain # Possible Tick-Borne Illness Patient reports approximately 30 tick bites while camping for two weeks prior No bull's-eye rash Plan: doxycycline # Dystonia Plan: Follow-up with primary care # Hypertension Hold # Hypothyroidism # Chronic Pain / Narcolepsy Confirm gabapentin dosing Continue Adderall 20 mg BID. Patient has requested to hold this while inpatient. # GERD protonix # Insomnia Start melatonin as requested for sleep. #DVT Prophylaxis Lovenox 40 mg SQ daily PDMP PDMP Reviewed: Not Reviewed Attestations Medical Necessity Statement*: Patient requires hospitalization for myasthenia crisis Diagnoses Myasthenia gravis with exacerbation G70.01 Flank pain R10.9 Tick bite W57.XXXA
[2025-05-07] MEDS: oxyCODONE-APAP 10-325 mg Tablet 1 TAB PO (20:49)
[2025-05-07] MEDS: MELATONIN 3 MG TABLET PO (20:50)
[2025-05-08 02:24] LABS: Hematocrit 33.1 % (36-47); Hemoglobin 10.90 g/dL (11.27-16.99); Mean Corpuscular HGB Conc 32.9 g/dL (30-55); Mean Corpuscular Hemoglobin 32.9 pg (27-33); Mean Corpuscular Volume 100.0 fl (85-98); Nucleated Red Blood Cells % 0 %; Platelet Count 197 10^3/cmm (157-399); Red Blood Count 3.31 10^6/uL (3.85-5.65); White Blood Count 4.32 10^3/uL (3.29-11.43)
[2025-05-08 04:00] VITALS: BP 104/73; PULSE 59; RESP 17; TEMP 36.5; O2SAT 99
[2025-05-08] MEDS: IMMUNE GLOBULIN IV (06:39)
[2025-05-08 08:08] VITALS: BP 156/67; PULSE 62; RESP 16; TEMP 36.4; O2SAT 98
--- NOTE | 2025-05-08 08:11 | PM.DCS ---
Discharge Providers Date of Admission: 05/04/25 13:50 Date of Discharge: May 08, 2025 Attending Provider at Admission: Rubin Burr MD Attending Provider at Discharge: Mateusz Peña MD Diagnoses at Discharge Discharge Diagnosis 1. Myasthenia gravis with exacerbation: 2. Flank pain: 3. Tick bite: Reason for Visit Reason for Visit: sob Hospital Course Hospital Course This is a 49-year-old female with a past medical history of myasthenia gravis, narcolepsy, hypertension, CKD who presents [facility] due to exacerbation of her myasthenia gravis as she has not received her IVIG infusion scheduled on April 29 Patient is admitted to [facility] for myasthenia gravis exacerbation, received IVIG as inpatient for 5 days, overall clinically improved, symptomatology resolved, no trouble swallowing, no difficulty breathing, will be discharged with close follow-up with neurology in [facility] For bilateral flank pain, resolved Concerns for tickborne illness, reports tick bites, managed on doxycycline, will be discharged on doxycycline. Discussed with patient to wear sunscreen, stay out of the sun, drink plenty electrolyte balance fluids Hypertension, continue her home losartan History of narcolepsy, continue her home Adderall Physical Exam Const: COMMON NORMALS: no acute distress and patient oriented x3 Resp: COMMON NORMALS: normal respiratory effort, No retractions, No use of accessory muscles and clear to auscultation bilaterally AUSCULTATION: clear to auscultation bilaterally Cardio: COMMON NORMALS: regular rate, regular rhythm, S1 normal heart sound present and S2 normal heart sound present RATE: regular rate RHYTHM: regular rhythm HEART SOUNDS: S1 normal heart sound present and S2 normal heart sound present GI: COMMON NORMALS: Normal to inspection, nondistended, normoactive bowel sounds present Extremity: COMMON NORMALS: no pedal edema Neuro: COMMON NORMALS: patient oriented x3 Psych: COMMON NORMALS: mental status grossly normal Discharge Data Studies Completed and Pending Pending at discharge Category Date Time Status Comprehensive Metabolic Panel Timed Lab 05/08/25 02:52 Ordered Tick Panel Stat Lab 05/03/25 20:13 Results Laboratory Results WBC 4.32 10^3/uL (3.29-11.43) 05/08/25 01:14 RBC 3.31 10^6/uL (3.85-5.65) L 05/08/25 01:14 Hgb 10.90 g/dL (11.27-16.99) L 05/08/25 01:14 Hct 33.1 % (36-47) L 05/08/25 01:14 MCV 100.0 fl (85-98) H 05/08/25 01:14 MCH 32.9 pg (27-33) 05/08/25 01:14 MCHC 32.9 g/dL (30-55) 05/08/25 01:14 RDW 14.3 % (12.1-15.1) 05/08/25 01:14 Plt Count 197 10^3/cmm (157-399) 05/08/25 01:14 MPV 10.0 fL (7.4-10.4) 05/08/25 01:14 Neut % (Auto) 42.3 % 05/08/25 01:14 Lymph % (Auto) 47.5 % 05/08/25 01:14 [place] % (Auto) 8.3 % 05/08/25 01:14 Eos % (Auto) 1.2 % 05/08/25 01:14 Baso % (Auto) 0.5 % 05/08/25 01:14 Neut # (Auto) 1.83 10^3/uL (1.8-7.7) 05/08/25 01:14 Lymph # (Auto) 2.1 10^3/uL (0.8-4.8) 05/08/25 01:14 [place] # (Auto) 0.4 10^3/uL (0.2-0.9) 05/08/25 01:14 Eos # (Auto) 0.1 10^3/uL (0.0-0.8) 05/08/25 01:14 Baso # (Auto) 0.0 10^3/uL (0.0-0.1) 05/08/25 01:14 Nucleated RBC % (auto) 0 % 05/08/25 01:14 Nucleated RBCs # 0.0 /100WBC 05/08/25 01:14 ESR 7 mm/hr (0-15) 05/03/25 20:13 Sodium Cancelled 05/08/25 01:14 Potassium Cancelled 05/08/25 01:14 Chloride Cancelled 05/08/25 01:14 Carbon Dioxide Cancelled 05/08/25 01:14 Anion Gap Cancelled 05/08/25 01:14 BUN Cancelled 05/08/25 01:14 Creatinine Cancelled 05/08/25 01:14 GFR Calculation Cancelled 05/08/25 01:14 Glucose Cancelled 05/08/25 01:14 Calculated Osmolality Cancelled 05/08/25 01:14 Calcium Cancelled 05/08/25 01:14 Total Bilirubin Cancelled 05/08/25 01:14 AST Cancelled 05/08/25 01:14 ALT Cancelled 05/08/25 01:14 Alkaline Phosphatase Cancelled 05/08/25 01:14 C-Reactive Protein 4.4 mg/L (0.0-4.9) 05/03/25 20:13 Total Protein Cancelled 05/08/25 01:14 Albumin Cancelled 05/08/25 01:14 Globulin Cancelled 05/08/25 01:14 Procalcitonin 0.05 ng/mL (0-0.5) 05/03/25 20:13 Urine Color Yellow (Yellow) 05/03/25 20:28 Urine Appearance Clear (CLEAR) 05/03/25 20:28 Urine pH 6.0 (5-7) 05/03/25 20:28 Ur Specific [place] 1.029 (1.005-1.030) 05/03/25 20:28 Urine Protein Negative (Negative) 05/03/25 20:28 Urine Glucose (UA) Negative (Normal) 05/03/25 20:28 Urine Ketones Trace (Negative) 05/03/25 20: Urine Blood Negative (Negative) 05/03/25 20: Urine Nitrate Negative (Negative) 05/03/25 20:28 Urine Bilirubin Negative (Negative) 05/03/25 20: Urine Urobilinogen 1.0 mg/dL (Negative) 05/03/25 20:28 Ur Leukocyte Esterase Negative (Negative) 05/03/25 20:28 Urine RBC 6-10 /hpf (0-2) 05/03/25 20:28 Urine WBC 6-10 /hpf (0-5) 05/03/25 20:28 Ur Squamous Epith Cells 11-20 /hpf (0-5) H 05/03/25 20:28 Amorphous Sediment Not Reportable 05/03/25 20:28 Urine Bacteria 4+ /hpf (NONE) H 05/03/25 20:28 Hyaline Casts 2.05 /lpf 05/03/25 20:28 Urine Opiates Screen Negative ng/mL (Negative) 05/03/25 20:32 Ur Barbiturates Screen Negative ng/mL (Negative) 05/03/25 20:32 Ur Phencyclidine Scrn Negative ng/mL (Negative) 05/03/25 20:32 Ur Amphetamines Screen Positive ng/mL (Negative) H 05/03/25 20:32 U Benzodiazepines Scrn Negative ng/mL (Negative) 05/03/25 20:32 Urine Cocaine Screen Negative ng/mL (Negative) 05/03/25 20:32 U Marijuana (THC) Screen Negative ng/mL (Negative) 05/03/25 20:32 Lyme Ab ([place]) <0.90 index 05/03/25 20:13 Vitals Last Vital Signs Temp 97.5 F L 05/08/25 08:08 Pulse 62 05/08/25 08:08 Resp 16 05/08/25 08:08 BP 156/67 05/08/25 08:08 Pulse Ox 98 05/08/25 08:08 O2 Del Method Room Air 05/08/25 08:08 Discharge Plan Discharge Patient Disposition: Home Condition: Stable Prescriptions: New doxycycline monohydrate 100 mg Tablet 100 mg PO 0500,1700 7 Days Qty: 14 0RF losartan 50 mg Tablet 25 mg PO DAILY 30 Days Qty: 15 0RF Continued Botox 100 unit recon soln 200 unit IM .Q90D Discharge Order = DC NOW: Discharge Order (Routine); Ordered 05/08/25 Ordered By: Mateusz Peña Discharge Diet: Cardiac Discharge Activity: Resume usual activity Patient Instructions: Opioid Safety, Patient Portal & Hilary Instructions Activity Restrictions/Additional Instructions: -follow up with neurology -please stay out of sun, hydrate, sunscreen -if any worsening symptoms please go to the emergency room - Discharge Attestations Time Spent in Discharge Care*: greater than 30 min Quality Metrics Clinical Quality Measures [ No reported AMI, CVA or VTE this stay] Coding Level of Care Code 42700 Total time (in minutes) for Discharge: 45 Diagnoses Myasthenia gravis with exacerbation G70.01 Flank pain R10.9 Tick bite W57.XXXA
[2025-05-08 10:52] VITALS: BP 156/67; PULSE 62; RESP 16; TEMP 36.4; O2SAT 98
[2025-05-11 18:25] LABS: RMSF IGG NOT DETECTED; RMSF IGM NOT DETECTED
== END 2025-05-08 10:54 | disposition home or self-care (01) | DRG 57 ==
LOC: ER 22:42 → MEDSURG 23:42
PROVIDERS: Hospitalist; Admitting Provider Internal Medicine; Emergency Provider Student in an Organized Health Care Education/Training Program; Visit Provider Family Medicine
DX: G70.01 Myasthenia gravis with (acute) exacerbation (principal); R69 Illness, unspecified; I12.9 Hypertensive chronic kidney disease with stage 1 through stage 4 chronic kidney disease, or unspecified chronic kidney disease; N18.9 Chronic kidney disease, unspecified; G47.419 Narcolepsy without cataplexy; R10.9 Unspecified abdominal pain; G24.9 Dystonia, unspecified; E03.9 Hypothyroidism, unspecified; K21.9 Gastro-esophageal reflux disease without esophagitis; G47.00 Insomnia, unspecified; G89.29 Other chronic pain; F41.9 Anxiety disorder, unspecified; Z87.442 Personal history of urinary calculi
CPT/HCPCS: 36415; 36591; 80048; 80053; 80306; 81001; 84145; 85025; 85651; 86140; 86618; 86666; 86757; 96372; 99285; G0378; J1459; J1650; J2405; J7120; J9999; Q0163